=== PATIENT | male | born 1975 | race Caucasian/White ===

== ENCOUNTER 2023-08-26 10:14 | Inpatient (IN) ==
[2023-08-26] MEDS ORDERED: MAGNESIUM HYDROXIDE SUSP 30 ML UDC PO PRN (10:34)
[2023-08-26] MEDS ORDERED: diphenhydrAMINE 50 MG/ML VIAL IV PRN (10:34)
[2023-08-26] MEDS ORDERED: ACETAMINOPHEN 325 MG TAB PO PRN (10:34)
[2023-08-26] MEDS ORDERED: ONDANSETRON INJ 2 MG/ML 2 ML VIAL IV PRN (10:34)
[2023-08-26] MEDS ORDERED: Patient's ALLERGY Info needs ENTERED STA (10:44)
[2023-08-26 11:16] LABS: Basophils # (auto) 0.05 K/uL (0.00-0.20); Basophils % (auto) 0.8 %; Eosinophils # (auto) 0.19 K/uL (0.00-0.50); Eosinophils % (auto) 2.9 %; Hematocrit (blood only) 42.6 % (42.0-52.0); Hemoglobin 14.3 g/dl (14.0-18.0); Immature Granulocytes # (auto) 0.02 K/uL (0.01-0.20); Immature Granulocytes % (auto) 0.3 %; Lymphocytes # (auto) 1.86 K/uL (1.20-3.40); Lymphocytes % (auto) 28.7 %; Mean Corpuscular Hemoglobin 30.7 pg (25.0-34.0); Mean Corpuscular Hgb Conc 33.6 g/dL (32.0-36.0); Mean Corpuscular Volume 91.4 fL (80.0-100.0); Mean Platelet Volume 9.6 fL (9.4-12.4); Monocytes # (auto) 0.66 K/uL (0.11-0.59); Monocytes % (auto) 10.2 %; Neutrophils % (auto) 57.1 %; Platelet Count 155 K/uL (130-400); RDW Coefficient of Variation 11.9 % (11.5-14.5); RDW Standard Deviation 39.4 fL (36.4-46.3); Red Blood Count 4.66 M/uL (4.70-6.10); White Blood Count 6.48 K/ul (4.8-10.8)
[2023-08-26 11:34] LABS: Albumin Globulin Ratio 1.6 (0.9-2); Albumin Level 4.4 gm/dl (3.4-5.0); Bilirubin,Total 0.5 mg/dl (0.2-1.0); Calcium 8.9 mg/dl (8.6-10.3); Creatinine Clr Calc Pharmacy 124.5 ml/min; Est GFR (Non-African American) 105.3 ml/min; Globulin 2.7 gm/dl (2.5-4.0); Potassium 3.6 mmol/L (3.5-5.1); Total Protein 7.1 gm/dl (6.0-8.3)
--- NOTE | 2023-08-26 11:50 | Hospitalist Consultation ---
Date of Consultation August 26, 2023 Assessment & Plan (1) PTSD (post-traumatic stress disorder): on Zyprexa Effexor continue current meds (2) Ankle fracture: admitted for elective ankle fx surgery he denies chest pain or SOB, no h/o CAD EKG ordered if no ischemic changes , proceed with surgery, low risk, no additional testing History of Present Illness Reason for Consultation: preop eval Attending Physician: Romeo Hoskins MD History of Present Illness 48 yo inmate with h/o PTSD, anxiety, smoking, stopped 1 month ago, drug abuse, denies alcohol abuse. Mother is alive, father had HIV, . Admitted for elective left ankle surgery, fractured in June due to mechanical fall. Patient denies chest pain or SOB, denies any history of heart problems, denies h/o Asthma, COPD, no family h/o of sudden cardiac or CAD, denies problems with anesthesia before, no drugs allergies. Allergies Allergy/AdvReac Type Severity Reaction Status Date / Time No Known Allergies Allergy Unverified 08/26/23 11:47 Home Medications Medication Instructions Recorded Confirmed Type Effexor XR 300 mg PO PM 08/26/23 08/26/23 History Zyprexa 1 tab PO QPM 08/26/23 08/26/23 History buprenorphine 0.5 ml SC Q4WK 08/26/23 08/26/23 History Patient History Social History Smoking Status: Former smoker Hx Alcohol Use: No Hx Substance Use: No Preferred Language: Estonian Communication Ability: Effective Retail Director Required: No Beliefs That Will Affect Care: None Current Living Situation: Other Current Living Situation Comment: [facility] Other Information That Helps Us Care for You: No Feels Safe at Home: Yes Safety Concerns: Feels Safe At This Time Assistive Devices: Walker Review of Systems Review of Systems: All systems reviewed & are unremarkable except as noted in HPI & below Physical Exam Physical Exam: head atraumatic, normocephalic neck supple, no JVD chest CTA b/l Heart S1S2 regular, no murmurs, gallops, rubs abdomen soft, nt, nd , BS present extremities Results & Data Results & Data Vital Signs (Past 12 Hours) Vital Signs Temp Pulse Resp BP Pulse Ox O2 Del Method 08/26/23 10:53 36.7 C 65 16 116/80 94 Room Air PG Care Time/CCT Total # of Minutes Spent Total Time Spent with Patient: Total time spent is greater than 50% in coordination of care (as documented) at patient's floor/unit and/or counseling patient: Coding Level of Care Code 02487 IN/OBS CONSULT LVL 4,60M Diagnoses PTSD (post-traumatic stress disorder) F43.10 Ankle fracture S82.899A
--- NOTE | 2023-08-26 12:03 | History & Physical Report ---
Date of Service August 26, 2023 Assessment & Plan (1) Ankle fracture: Plan: Patient was admitted from our office to [facility] for evaluation and treatment of bimalleolar unstable right ankle fracture. He has a right ankle Cordova C lateral malleolus fracture and nonunited medial malleolus fracture He has multiple healing fracture blister type wound to the right lower extremity. He was placed in a posterior splint and advised to remain nonweig htbearing of the right lower extremity. We have an order in for a venous Doppler ultrasound of the right lower extremity to rule out DVT. Once that is completed we will place him in a more supportive splint with a U stirrup and posterior slab. He needs to ambulate with walker or crutches. Encouraged ice and elevation. We will give him a regular diet and plan for surgery early next week. If ultrasound for DVT is negative will place on Lovenox 30 mg SQ every 12 hours and will stop 12 to 24 hours prior to surgery. Will also get a CT scan of the right ankle. His fracture is approximately 5 weeks old at this time. He understands and agrees with the plan. Will get a hospitalist for medical management while an inpatient. AKI Leigh was notified of this admitting him and plans for surgery. He understands and agrees with the plan. All questions were answered today. Will continue to follow while inpatient. Admission and Anticipated Discharge Date Admission Date: August 26, 2023 History of Present Illness Chief Complaint: Right ankle fracture Primary Care Provider: AKI Leigh Alex Read is a 48 year old Male, [facility] inmate, who presents today for evaluation of right ankle fracture. Patients reports he had a fall while standing on 07/23/2023. He was unable to bear weight after the fall. He was taking to the ED where x-rays were obtained and placed in a splint. He was told at that time he would need surgery but has not been seen since. He has been relatively nonweightbearing except for to help balance while standing but is unable to bear full weight. He does note pain at rest and is taking ibuprofen and Tylenol for pain. Denies paraesthesia, numbness/tingling No history of blood clot/bleeding/embolism, diabetes, seizure, HTN, or CVD. No history of Staph or MRSA. No metal allergies. Allergies Allergy/AdvReac Type Severity Reaction Status Date / Time No Known Allergies Allergy Unverified 08/26/23 11:47 Home Medications Medication Instructions Recorded Confirmed Type Effexor XR 300 mg PO PM 08/26/23 08/26/23 History Zyprexa 1 tab PO QPM 08/26/23 08/26/23 History buprenorphine 0.5 ml SC Q4WK 08/26/23 08/26/23 History Past Med/Surg History Problem List (Updated 08/26/23 @ 12:03 by Sruthi Pritchett PA-C) Ankle fracture Medical History (Updated 08/26/23 @ 12:03 by Sruthi Pritchett PA-C) HCV (hepatitis C virus) Opioid use disorder Cannabis use disorder Cocaine use disorder Nicotine dependence Constipation Adjustment disorder with anxiety PTSD (post-traumatic stress disorder) Social History Smoking Status: Former smoker Hx Alcohol Use: No Hx Substance Use: No Preferred Language: Welsh Communication Ability: Effective Record Filing Clerk Required: No Beliefs That Will Affect Care: None Current Living Situation: Other Current Living Situation Comment: [facility] Other Information That Helps Us Care for You: No Feels Safe at Home: Yes Safety Concerns: Feels Safe At This Time Assistive Devices: Walker Review of Systems Review of Systems: All systems reviewed & are unremarkable except as noted in HPI & below Physical Exam Constitutional: WD/WN, vitals as above Eyes: PERRL, conjunctivae normal, anicteric sclerae ENMT: external ear and nose normal, oropharynx normal Neck: trachea midline, no thyromegaly Respiratory: normal respiratory effort, lungs clear to auscultation Cardiovascular: RRR, no murmur, no edema Chest (Breasts): Chest: normal inspection of chest Gastrointestinal (Abdomen): normal bowel sounds, soft, nontender, no hepatosplenomegaly Musculoskeletal: Focus on the right lower extremity: Trace DP and 1+ PT pulse Multiple dry, flat fracture blisters in the foot ankle area. 5/5 strength ankle and toe plantarflexion and dorsiflexion Ankle ROM: Plantarflexion 30 / Dorsiflexion 5 beyond neutral Minimal swelling Side to side laxity of ankle Medial and lateral malleoli are nontender Skin: Multiple dry, flat fracture blisters in the foot ankle area. Neurologic: patellar DTR's 2+ bilat, sensation intact and PERRL, EOMI, acco mmodation nl, no face palsy, no dysarthria Psychiatric: A+Ox3, euthymic affect Results & Data Results & Data Vital Signs (Past 12 Hours) Vital Signs Temp Pulse Resp BP Pulse Ox O2 Del Method 08/26/23 10:53 36.7 C 65 16 116/80 94 Room Air Laboratory Results 08/26/23 Range/Units 10:50 WBC 6.48 (4.8-10.8) K/ul RBC 4.66 L (4.70-6.10) M/uL Hgb 14.3 (14.0-18.0) g/dl Hct 42.6 (42.0-52.0) % MCV 91.4 (80.0-100.0) fL MCH 30.7 (25.0-34.0) pg MCHC 33.6 (32.0-36.0) g/dL RDW Std Deviation 39.4 (36.4-46.3) fL RDW Coeff of Sarthak 11.9 (11.5-14.5) % Plt Count 155 (130-400) K/uL MPV 9.6 (9.4-12.4) fL Immature Gran % (Auto) 0.3 % Neut % (Auto) 57.1 % Lymph % (Auto) 28.7 % Bland % (Auto) 10.2 % Eos % (Auto) 2.9 % Baso % (Auto) 0.8 % Neut # (Auto) 3.70 (1.40-6.50) K/uL Lymph # (Auto) 1.86 (1.20-3.40) K/uL Bland # (Auto) 0.66 H (0.11-0.59) K/uL Eos # (Auto) 0.19 (0.00-0.50) K/uL Baso # (Auto) 0.05 (0.00-0.20) K/uL Immature Gran # (Auto) 0.02 (0.01-0.20) K/uL Sodium 141 (136-145) mmol/L Potassium 3.6 (3.5-5.1) mmol/L Chloride 103 (98-107) mmol/L Carbon Dioxide 34 H (21-32) mmol/L Anion Gap 4 (3-11) BUN 18 (6-23) mg/dl Creatinine 0.82 (0.6-1.4) mg/dl Est Cr Clr Drug Dosing 124.5 ml/min Est GFR ( Amer) 122.0 ml/min Est GFR (Non-Af Amer) 105.3 ml/min BUN/Creatinine Ratio 22.0 H (10-20) Glucose 98 (70-99(Fasting)) mg/dl Calcium 8.9 (8.6-10.3) mg/dl Total Bilirubin 0.5 (0.2-1.0) mg/dl AST 18 (13-39) U/L ALT 25 (7-52) U/L Alkaline Phosphatase 83 (34-104) U/L Total Protein 7.1 (6.0-8.3) gm/dl Albumin 4.4 (3.4-5.0) gm/dl Globulin 2.7 (2.5-4.0) gm/dl Albumin/Globulin Ratio 1.6 (0.9-2) 25-OH Vitamin D Total Pending Diagnostic Findings I obtained and personally interpreted 3 views of the right ankle, stored in [facility] which shows a Cordova C lateral malleolus fracture and nonunited medial malleolus fracture. No findings posterior. CT of right ankle pending Code Status & VTE Plan VTE Prophylaxis Plan VTE Prophylaxis will be ordered: Yes
--- NOTE | 2023-08-26 12:49 | Ultrasound Report ---
RIGHT LOWER EXTREMITY VENOUS DOPPLER CLINICAL HISTORY: ankle fracture; swelling; immobility x 1 month COMPARISON STUDY: No previous studies for comparison. TECHNIQUE: Sonography of the deep venous system of the right lower extremity was performed. Compress ion and augmentation were evaluated. FINDINGS: The right common femoral, superficial femoral and popliteal veins were compressible. Augme ntation was normal. Flow was shown within the deep calf vessels. IMPRESSION: No evidence of deep venous thrombus within the right lower extremity. ACT 112: Negative or not required by law. Electronically signed by: Edgar Sarmiento M.D. 08/26/2023 12:48 PM
[2023-08-26] MEDS: IBUPROFEN 200 MG/10 ML UDC PO PRN (13:16)
[2023-08-26] MEDS: SODIUM CHLORIDE 0.9% 1,000 ML IV SCH (13:16)
--- NOTE | 2023-08-26 13:27 | CT Scan Report ---
RIGHT ANKLE CT CT DOSE: 532. mGy.cm HISTORY: Bilmalleolar ankle fracture - right TECHNIQUE: Multiaxial CT images of the right ankle were performed and reformatted in the sagittal and coronal plane without the use of contrast. A dose lowering technique was utilized adhering to the p rinciples of PENELOPE. COMPARISON: Right ankle radiograph 08/26/2023. FINDINGS: There is again noted a comminuted and mildly displaced fracture involving the distal fibula . This demonstrates mild posterior angulation and up to 6 mm of posterior and lateral displacement. T here is a slightly displaced oblique fracture within the medial malleolus which demonstrates up to 5 mm of distraction. No dislocation. Tiny fracture with associated callus formation at the posterior ma lleolus. Therefore, by definition this is consistent with a trimalleolar right ankle fracture. Diffus e subcutaneous edema within the ankle mild calcified formation without significant bony bridging at t he distal fibular fracture. This is consistent with partial healing. Avulsion of the periosteum at th e posterior malleolus is also noted. IMPRESSION: 1. Redemonstration of the mildly displaced trimalleolar right ankle fracture as described above. 2. No dislocation. 3. Mild calcified formation without significant bony bridging at the distal fibular fracture consiste nt with interval healing. 4. Diffuse soft tissue swelling within the right ankle. ACT 112: Negative or not required by law. Electronically signed by: New Masters M.D. 08/26/2023 1:25 PM
--- NOTE | 2023-08-26 15:56 | XRay Report ---
XR ankle LT min 3V routine CLINICAL HISTORY: Comparison review. Right ankle fracture. COMPARISON STUDY: Right ankle 08/26/2023. FINDINGS: No acute fracture or dislocation within the left ankle. The ankle mortise is intact. No sof t tissue swelling. No radiopaque foreign bodies. Cartilage spaces are maintained for age. IMPRESSION: No fracture or dislocation within the left ankle. ACT 112: Negative or not required by law. Electronically signed by: New Masters M.D. 08/26/2023 3:55 PM
[2023-08-26] MEDS: VENLAFAXINE HCL XR 150 MG CAPXR PO SCH (20:55)
[2023-08-26] MEDS: OLANZapine 20 MG TABLET PO SCH (20:55)
[2023-08-26] MEDS: ENOXAPARIN INJ 30 MG/0.3 ML SYR SQ SCH (20:55)
[2023-08-26] MEDS: DOCUSATE SODIUM 100 MG CAP PO SCH (20:55)
[2023-08-26] MEDS: IBUPROFEN 600 MG TAB PO PRN (21:15)
[2023-08-27] MEDS: PANTOprazole 40 MG TAB PO SCH (08:13)
--- NOTE | 2023-08-27 08:42 | Hospitalist Progress Note ---
Date of Service August 27, 2023 Assessment & Plan (1) Ankle fracture: Plan: Was at orthopedics office and admitted from such for evaluation and treatment of bimalleolar unstable right ankle fracture. Per orthopedics, Mr Read has a right ankle Cordova C lateral malleolus fracture and nonunited medial malleolus fracture with multiple healing fracture blister type wound to the right lower extremity. * Placed in a posterior splint and advised to remain nonweightbearing of the right lower extremity. * Venous Doppler ordered to r/o DVT -- NEGATIVE * CT scan w/ posterior malleolar fracture which is structurally insignificant, ununited medial malleolus fracture and comminuted lateral malleolus fracture No fracture in left ankle on xray imaging Per ortho note, to be placed in more supportive splint with U stirrup and posterior slap and ambulation with walker/crutches planned with ice/elevation and planning for surgery early this upcoming week Vit D level checked, LOW 15.9- replacement as below and would continue at dc Lovenox SQ to be ordered BID and to be held 12-24 hours prior to surgery (surgery planned at present time for 08/[address] Hoskins EKG w/ NSR, 61bpm, no evidence for ischemic changes or need for additional testing. No hx CAD -will order CXR for pre-op as does not appear to have baseline prior for comparison. Increased bowel regimen - continue colace BID but added miralax TID as reports has been several days since last BM. Does have +BS throughout and passing gas. Should monitor. Ambulation as able per ortho instructions once seen/stirrup in place IVF ordered continuous, ?does not appear dehydrated -- messaged primary to see if wanting continuous or was to start once NPO Hospitalist service can follow along, messaged primary service (2) PTSD (post-traumatic stress disorder): Plan: on Zyprexa which has been continued 20mg HS Effexor 300mg daily QAM ordered --> changed to HS as takes at night Mood stable during exam (3) Vitamin D deficiency: Plan: Vitamin D level checked due to fracture, LOW 15.9 Supplementation started D3 25mcg daily and would continue at discharge Plan continued inpatient stay, surgery planned this upcoming week Hospitalist service will follow along. Please call with any questions/concerns. Admission and Anticipated Discharge Date Admission Date: August 26, 2023 Supervising Physician Co-Signing Physician Notes The patient was not seen by me. The chart was reviewed. Case discussed with SARA Cook. Agree with assessment and plan Subjective Evaluated this morning, laying in bed, guards at bedside. Reports pain controlled at this time, sensation intact. Reviewed negative doppler for DVT, CT results and negative fractures for his left ankle. Passing gas but no BM for several days, will increase bowel regimen. Ortho not yet in to see patient but to change his cast to different split per prior note. Discussed likely no need for continuing to monitor if stable by hospitalist group until after surgery but will discuss w/ primary service as IVF also continuous and inquiring if needing to be now vs when NPO Tuesday night? He also notes he takes his effexor at night, adjusted. Mood stable. Pleasant with exam No fever/chills, chest pain shortness of breath, abdominal pain/nausea at this time. Questions/concerns addressed. Physical Exam Physical Exam: 48yo male sitting up in bed, 2 guards in room, NAD Head atraumatic, normocephalic, mmm, trachea midline Resp: even/unlabored, no w/c/r, on room air CV: RRR, no significant m/r/g, no pitting edema on the left, cast/splint on RLE GI: +BS, slight distension, nontender, no guarding/rebound MSK/Neuro: splint/emilia wrap to RLE, toes mobile, sensation intact, cap refill wnl LLE without significant edema, no calf tenderness Psych: AOx3, cooperative with exam Results & Data Results & Data Vital Signs (Past 12 Hours) Vital Signs Temp Pulse Resp BP Pulse Ox O2 Del Method 08/27/23 06:59 36.3 C L 67 16 117/71 96 Room Air Laboratory Results 08/26/23 08/26/23 Range/Units 16:20 10:50 WBC 6.48 (4.8-10.8) K/ul RBC 4.66 L (4.70-6.10) M/uL Hgb 14.3 (14.0-18.0) g/dl Hct 42.6 (42.0-52.0) % MCV 91.4 (80.0-100.0) fL MCH 30.7 (25.0-34.0) pg MCHC 33.6 (32.0-36.0) g/dL RDW Std Deviation 39.4 (36.4-46.3) fL RDW Coeff of Sarthak 11.9 (11.5-14.5) % Plt Count 155 (130-400) K/uL MPV 9.6 (9.4-12.4) fL Immature Gran % (Auto) 0.3 % Neut % (Auto) 57.1 % Lymph % (Auto) 28.7 % Nash % (Auto) 10.2 % Eos % (Auto) 2.9 % Baso % (Auto) 0.8 % Neut # (Auto) 3.70 (1.40-6.50) K/uL Lymph # (Auto) 1.86 (1.20-3.40) K/uL Nash # (Auto) 0.66 H (0.11-0.59) K/uL Eos # (Auto) 0.19 (0.00-0.50) K/uL Baso # (Auto) 0.05 (0.00-0.20) K/uL Immature Gran # (Auto) 0.02 (0.01-0.20) K/uL Sodium 141 (136-145) mmol/L Potassium 3.6 (3.5-5.1) mmol/L Chloride 103 (98-107) mmol/L Carbon Dioxide 34 H (21-32) mmol/L Anion Gap 4 (3-11) BUN 18 (6-23) mg/dl Creatinine 0.82 (0.6-1.4) mg/dl Est Cr Clr Drug Dosing 124.5 ml/min Est GFR ( Amer) 122.0 ml/min Est GFR (Non-Af Amer) 105.3 ml/min BUN/Creatinine Ratio 22.0 H (10-20) Glucose 98 (70-99(Fasting)) mg/dl Calcium 8.9 (8.6-10.3) mg/dl Total Bilirubin 0.5 (0.2-1.0) mg/dl AST 18 (13-39) U/L ALT 25 (7-52) U/L Alkaline Phosphatase 83 (34-104) U/L Total Protein 7.1 (6.0-8.3) gm/dl Albumin 4.4 (3.4-5.0) gm/dl Globulin 2.7 (2.5-4.0) gm/dl Albumin/Globulin Ratio 1.6 (0.9-2) 25-OH Vitamin D Total 15.9 L (30-100) ng/ml Nasal Screen MRSA (PCR) Negative (Negative) Diagnostic Findings Lower Extremity CT 08/26/23 10:[address] DOSE: 532. mGy.cm HISTORY: Bilmalleolar ankle fracture - right TECHNIQUE: Multiaxial CT images of the right ankle were performed and reformatted in the sagittal and coronal plane without the use of contrast. A dose lowering technique was utilized adhering to the principles of ALARA. COMPARISON: Right ankle radiograph 08/26/2023. FINDINGS: There is again noted a comminuted and mildly displaced fracture involving the distal fibula. This demonstrates mild posterior angulation and up to 6 mm of posterior and lateral displacement. There is a slightly displaced oblique fracture within the medial malleolus which demonstrates up to 5 mm of distraction. No dislocation. Tiny fracture with associated callus formation at the posterior malleolus. Therefore, by definition this is consistent with a trimalleolar right ankle fracture. Diffuse subcutaneous edema within the ankle mild calcified formation without significant bony bridging at the distal fibular fracture. This is consistent with partial healing. Avulsion of the periosteum at the posterior malleolus is also noted. IMPRESSION: 1. Redemonstration of the mildly displaced trimalleolar right ankle fracture as described above. 2. No dislocation. 3. Mild calcified formation without significant bony bridging at the distal fibular fracture consistent with interval healing. 4. Diffuse soft tissue swelling within the right ankle. ACT 112: Negative or not required by law. Electronically signed by: New Masters M.D. 08/26/2023 1:25 PM Venous Doppler Study 08/26/23 10:40 RIGHT LOWER EXTREMITY VENOUS DOPPLER CLINICAL HISTORY: ankle fracture; swelling; immobility x 1 month COMPARISON STUDY: No previous studies for comparison. TECHNIQUE: Sonography of the deep venous system of the right lower extremity was performed. Compression and augmentation were evaluated. FINDINGS: The right common femoral, superficial femoral and popliteal veins were compressible. Augmentation was normal. Flow was shown within the deep calf vessels. IMPRESSION: No evidence of deep venous thrombus within the right lower extremity. ACT 112: Negative or not required by law. Electronically signed by: Edgar Sarmiento M.D. 08/26/2023 12:48 PM Ankle X-Ray 08/26/23 14:09 XR ankle LT min 3V routine CLINICAL HISTORY: Comparison review. Right ankle fracture. COMPARISON STUDY: Right ankle 08/26/2023. FINDINGS: No acute fracture or dislocation within the left ankle. The ankle mortise is intact. No soft tissue swelling. No radiopaque foreign bodies. Cartilage spaces are maintained for age. IMPRESSION: No fracture or dislocation within the left ankle. ACT 112: Negative or not required by law. Electronically signed by: New Masters M.D. 08/26/2023 3:55 PM PG Care Time/CCT Total # of Minutes Spent Total Time Spent with Patient: Total time spent is greater than 50% in coordination of care (as documented) at patient's floor/unit and/or counseling patient: Coding Level of Care Code 11658 SUB INP/OBS CARE 3/50MIN Diagnoses Ankle fracture S82.899A PTSD (post-traumatic stress disorder) F43.10 Vitamin D deficiency E55.9
[2023-08-27] MEDS: POLYETHYLENE (MIRALAX) 17 GM PACK PO SCH (09:58)
[2023-08-27] MEDS: CHOLECALCIFEROL 25 MCG (1000 UNITS) TAB PO SCH (09:58)
--- NOTE | 2023-08-27 10:42 | XRay Report ---
XR chest 1V portable HISTORY: pre-op COMPARISON: None. FINDINGS: No pneumothorax. No pleural effusions. There is mild elevation the right hemidiaphragm. A f ew bibasilar linear densities favor subsegmental atelectasis or scarring. Otherwise, the lungs are cl ear. The heart is normal in size. No evidence for pulmonary edema. IMPRESSION: 1. No acute process within the chest. 2. Mild elevation of the right hemidiaphragm with a few bibasilar linear densities suggesting subsegm ental atelectasis. ACT 112: Negative or not required by law. Electronically signed by: New Masters M.D. 08/27/2023 10:41 AM
--- NOTE | 2023-08-27 11:35 | Orthopedic Progress Note ---
Date of Service August 27, 2023 Assessment & Plan (1) Ankle fracture: Plan: He has a subacute (5 weeks) bimalleolar right ankle fracture. Dr. Hoskins is planning for ORIF this week on 08/31/23. He should remain nonweightbearing on the right leg until then. Admission and Anticipated Discharge Date Admission Date: August 26, 2023 Subjective Patient is resting comfortably in bed, and accompanied by 2 snf guards. He denies significant pain in his right ankle. Physical Exam Physical Exam: Examination right ankle reveals a lower leg posterior and U-splint in place. Intact toe dorsiflexion and plantarflexion. Sensation is intact to light touch. Compartments are soft and compressible. No pain with passive stretch. Results & Data Vital Signs (Past 12 Hours) Vital Signs Temp Pulse Resp BP Pulse Ox O2 Del Method 08/27/23 06:59 36.3 C L 67 16 117/71 96 Room Air Diagnostic Findings Right lower extremity ultrasound was negative for DVT. (1) Ankle fracture Encounter type: initial encounter Fracture type: closed Laterality: right Qualified Code(s): S82.891A - Other fracture of right lower leg, initial encounter for closed fracture
[2023-08-27] MEDS: VENLAFAXINE HCL XR 150 MG CAPXR PO SCH (20:15)
--- NOTE | 2023-08-28 07:41 | Hospitalist Progress Note ---
Date of Service August 28, 2023 Assessment & Plan (1) Ankle fracture: Plan: Was at orthopedics office and admitted from such for evaluation and treatment of bimalleolar unstable right ankle fracture. Per orthopedics, Mr Read has a right ankle Cordova C lateral malleolus fracture and nonunited medial malleolus fracture with multiple healing fracture blister type wound to the right lower extremity. * Placed in a posterior splint and advised to remain nonweightbearing of the right lower extremity. * Venous Doppler ordered to r/o DVT -- NEGATIVE * CT scan w/ posterior malleolar fracture which is structurally insignificant, ununited medial malleolus fracture and comminuted lateral malleolus fracture No fracture in left ankle on xray imaging Per ortho note, to be placed in more supportive splint with U stirrup and posterior slap and ambulation with walker/crutches planned with ice/elevation and planning for surgery early this upcoming week Vit D level checked, LOW 15.9- replacement as below and would continue at dc Lovenox SQ to be ordered BID and to be held 12-24 hours prior to surgery (surgery planned at present time for 08/[address] Hoskins EKG w/ NSR, 61bpm, no evidence for ischemic changes or need for additional testing. No hx CAD -will order CXR for pre-op as does not appear to have baseline prior for comparison. Increased bowel regimen - continue colace BID but added miralax TID as reports has been several days since last BM. Does have +BS throughout and passing gas. Should monitor. Ambulation as able per ortho instructions once seen/stirrup in place IVF ordered continuous, ?does not appear dehydrated -- messaged primary to see if wanting continuous or was to start once NPO Hospitalist service can follow along, messaged primary service 08/27 While not needing to follow per primary while waiting for surgery and IVF discontinued per discussion w/ primary service, overnight resident team notified of patient reporting blood in stool. Prior had added bowel regimen for constipation as reported had been several days. ?hemorrhoidal bleeding from constipation. Will add labs today for completeness, fecal occult ordered. Cautious use of NSAIDs pending labs however vitals stable at present time, BP 117/80 and SpO2 95%. --> Labs w/ normal WBC. Hgb 14.3--> 13.1 HOWEVER had been on IVF by primary service since admission/discontinued yesterday as not planning for surgery until this upcoming week and suspect dilutional. BUN/Cr stable 14/0.83 as well. Suspect does NOT have GI bleeding but should monitor. Remains on protonix once daily, monitor fecal occult or need to increase PPI to BID. Cautious use NSAIDs recommended to primary service while awaiting stool study as has been getting ibuprofen for pain. Remains on Lovenox SQ for DVT prophylaxis. CXR w/ subsegmental atelectasis, on room air/no fever. Incentive spirometer encouraged Continue bowel regimen on pain medications at this time to prevent constipation Will monitor repeat h/h this afternoon to ensure remaining stable but DO NOT suspect acute GIB at this time and likely more hemorrhoidal in nature Planning for surgery on Tuesday Please bairon with any questions/concerns (2) PTSD (post-traumatic stress disorder): Plan: on Zyprexa which has been continued 20mg HS Effexor 300mg changed to HS Mood stable during exam (3) Vitamin D deficiency: Plan: Vitamin D level checked due to fracture, LOW 15.9 Supplementation started D3 25mcg daily and would continue at discharge (4) Bright red blood per rectum: Plan: reported as above x 1 month. had been taking ibuprofen for pain at halfway. hx hemorrhoids. is on PPI once daily for GI proph, increased to BID repeat h/h for this afternoon to ensure remaining stable OFF IVF DENIED abdominal pain Ibuprofen DISCONTINUED Lovenox SQ continued for not given stable labs/hgb/renal function and absence of abdominal pain but may need to be held pending fecal occult testing. can consider consult w/ GI if ongoing issues as well Monitor Plan continued inpatient stay, surgery planned this upcoming week on Tuesday Hospitalist service will follow along. Please call with any questions/concerns. Admission and Anticipated Discharge Date Admission Date: August 26, 2023 Supervising Physician Co-Signing Physician Notes The patient was not seen by me. The chart was reviewed. Case discussed with SARA Cook. Agree with assessment and plan Subjective Evaluated this morning, doing well. Pain controlled with ordered medications and reports to be getting tylenol shortly. Had bowel movement with regimen as added day prior but reported bright red blood in the stool/bowel with last bowel movement but reports this has been ongoing for a month. No lightheadedness/CP/SOB at this time, denies any abdominal pain or nausea/vomiting. Discussed AVOIDING NSAIDs -- had been taking ibuprofen at the halfway. Is on Lovenox for DVT prophylaxis at this time. Renal function remains stable as well. Hgb stable and vitals stable and discussed given stability and absence of abdominal pain at this time do not suspect acute issue but will monitor. Planning for surgery on Tuesday. Physical Exam Physical Exam: 48yo male sitting up in bed, 2 guards in room, NAD Head atraumatic, normocephalic, mmm, trachea midline Resp: even/unlabored, faint bibasilar crackles, no wheezing/rales, on room air CV: RRR, no significant m/r/g, no pitting edema on the left, cast/splint on RLE GI: +BS, less distension since bowel movements, no guarding/rigidity MSK/Neuro: splint/emilia wrap to RLE, toes mobile, sensation intact, cap refill wnl LLE without significant edema, no calf tenderness Psych: AOx3, cooperative with exam Results & Data Results & Data Vital Signs (Past 12 Hours) Vital Signs Temp Pulse Resp BP Pulse Ox O2 Del Method 08/28/23 07:21 36.4 C L 69 16 117/80 95 Room Air 08/27/23 21:01 36.5 C 62 18 119/79 96 Room Air Laboratory Results 08/28/23 Range/Units 07:43 WBC 5.68 (4.8-10.8) K/ul RBC 4.30 L (4.70-6.10) M/uL Hgb 13.1 L (14.0-18.0) g/dl Hct 38.9 L (42.0-52.0) % MCV 90.5 (80.0-100.0) fL MCH 30.5 (25.0-34.0) pg MCHC 33.7 (32.0-36.0) g/dL RDW Std Deviation 38.8 (36.4-46.3) fL RDW Coeff of Sarthak 11.9 (11.5-14.5) % Plt Count 146 (130-400) K/uL MPV 9.6 (9.4-12.4) fL Sodium 143 (136-145) mmol/L Potassium 3.9 (3.5-5.1) mmol/L Chloride 106 (98-107) mmol/L Carbon Dioxide 34 H (21-32) mmol/L Anion Gap 3 (3-11) BUN 14 (6-23) mg/dl Creatinine 0.83 (0.6-1.4) mg/dl Est Cr Clr Drug Dosing 123.0 ml/min Est GFR ( Amer) 121.4 ml/min Est GFR (Non-Af Amer) 104.8 ml/min BUN/Creatinine Ratio 16.9 (10-20) Glucose 88 (70-99(Fasting)) mg/dl Calcium 8.7 (8.6-10.3) mg/dl Magnesium 1.9 (1.7-2.4) mg/dl Diagnostic Findings Chest X-Ray 08/27/23 08:39 XR chest 1V portable HISTORY: pre-op COMPARISON: None. FINDINGS: No pneumothorax. No pleural effusions. There is mild elevation the right hemidiaphragm. A few bibasilar linear densities favor subsegmental atelectasis or scarring. Otherwise, the lungs are clear. The heart is normal in size. No evidence for pulmonary edema. IMPRESSION: 1. No acute process within the chest. 2. Mild elevation of the right hemidiaphragm with a few bibasilar linear densities suggesting subsegmental atelectasis. ACT 112: Negative or not required by law. Electronically signed by: New Masters M.D. 08/27/2023 10:41 AM PG Care Time/CCT Total # of Minutes Spent Total Time Spent with Patient: Total time spent is greater than 50% in coordination of care (as documented) at patient's floor/unit and/or counseling patient: Coding Level of Care Code 20654 SUB INP/OBS CARE 3/50MIN Diagnoses Closed fracture of right ankle, initial encounter S82.891A Encounter type: initial encounter Fracture type: closed Laterality: right PTSD (post-traumatic stress disorder) F43.10 Vitamin D deficiency E55.9 Bright red blood per rectum K62.5 (1) Ankle fracture Encounter type: initial encounter Fracture type: closed Laterality: right Qualified Code(s): S82.891A - Other fracture of right lower leg, initial encounter for closed fracture
[2023-08-28 08:17] LABS: Hematocrit (blood only) 38.9 % (42.0-52.0); Hemoglobin 13.1 g/dl (14.0-18.0); Mean Corpuscular Hemoglobin 30.5 pg (25.0-34.0); Mean Corpuscular Hgb Conc 33.7 g/dL (32.0-36.0); Mean Corpuscular Volume 90.5 fL (80.0-100.0); Mean Platelet Volume 9.6 fL (9.4-12.4); Platelet Count 146 K/uL (130-400); RDW Coefficient of Variation 11.9 % (11.5-14.5); RDW Standard Deviation 38.8 fL (36.4-46.3); White Blood Count 5.68 K/ul (4.8-10.8)
[2023-08-28 08:32] LABS: BUN Creatinine Ratio 16.9 (10-20); Calcium 8.7 mg/dl (8.6-10.3); Est GFR (African American) 121.4 ml/min; Est GFR (Non-African American) 104.8 ml/min; Magnesium 1.9 mg/dl (1.7-2.4); Potassium 3.9 mmol/L (3.5-5.1)
[2023-08-28] MEDS: oxyCODONE/ACETAMINOPHEN 5mg/325mg TAB PO PRN (10:29)
--- NOTE | 2023-08-28 12:03 | Orthopedic Progress Note ---
Date of Service August 28, 2023 Assessment & Plan (1) Ankle fracture: Plan: The hospital service will monitor and intervene regarding any GI bleeding issues as necessary. Right now hemoglobin is stable and he is hemodynamically stable. This is likely secondary to hemorrhoids and constipation rather than GI bleeding. NSAIDs will be held. Discussed with the patient the nature of the operation. We talked about risk benefits rehab recovery. This will be fairly extensive surgery and there will be pain involved. Arthritis and stiffness are significant risks. We will have to clean out the fracture sites and realign. Will also have to work on the syndesmosis. Autograft or allograft may be necessary and I reviewed with him the risks and benefits. He signed an informed consent. He will continue with his DVT prophylaxis. I would like for him to be out of bed in a chair if possible however the halfway guards indicate that that is not possible because of the shuttling issue. Admission and Anticipated Discharge Date Admission Date: August 26, 2023 Subjective Pain well-controlled. Did note bright red blood per rectum after having a bowel movement. No active bleeding. No black tarry stool. He reports this has been going on for a month. He has been constipated because of his opioid addiction medication. He has not had any abdominal pain or prior history of GI bleeding. He has not had a colonoscopy. I have spoken with Marina Adams about this and she is addressing. Physical Exam Physical Exam: Foot warm intact sensation can wiggle toes. Splint intact. Leg elevated. Results & Data Vital Signs (Past 12 Hours) Vital Signs Temp Pulse Resp BP Pulse Ox O2 Del Method 08/28/23 07:21 36.4 C L 69 16 117/80 95 Room Air Laboratory Results 08/28/23 Range/Units 07:43 WBC 5.68 (4.8-10.8) K/ul RBC 4.30 L (4.70-6.10) M/uL Hgb 13.1 L (14.0-18.0) g/dl Hct 38.9 L (42.0-52.0) % MCV 90.5 (80.0-100.0) fL MCH 30.5 (25.0-34.0) pg MCHC 33.7 (32.0-36.0) g/dL RDW Std Deviation 38.8 (36.4-46.3) fL RDW Coeff of Sarthak 11.9 (11.5-14.5) % Plt Count 146 (130-400) K/uL MPV 9.6 (9.4-12.4) fL Sodium 143 (136-145) mmol/L Potassium 3.9 (3.5-5.1) mmol/L Chloride 106 (98-107) mmol/L Carbon Dioxide 34 H (21-32) mmol/L Anion Gap 3 (3-11) BUN 14 (6-23) mg/dl Creatinine 0.83 (0.6-1.4) mg/dl Est Cr Clr Drug Dosing 123.0 ml/min Est GFR ( Amer) 121.4 ml/min Est GFR (Non-Af Amer) 104.8 ml/min BUN/Creatinine Ratio 16.9 (10-20) Glucose 88 (70-99(Fasting)) mg/dl Calcium 8.7 (8.6-10.3) mg/dl Magnesium 1.9 (1.7-2.4) mg/dl (1) Ankle fracture Encounter type: initial encounter Fracture type: closed Laterality: right Qualified Code(s): S82.891A - Other fracture of right lower leg, initial encounter for closed fracture
[2023-08-28 16:14] LABS: Hematocrit (blood only) 37.7 % (42.0-52.0); Hemoglobin 13.1 g/dl (14.0-18.0)
--- NOTE | 2023-08-28 18:41 | Electrocardiogram Report ---
Test Reason : Blood Pressure : / mmHG Vent. Rate : 061 BPM Atrial Rate : 061 BPM P-R Int : 184 ms QRS Dur : 086 ms QT Int : 448 ms P-R-T Axes : 024 000 011 degrees QTc Int : 450 ms Normal sinus rhythm Normal ECG No previous ECGs available Confirmed by Torsten Snow [id number]) on 08/28/2023 6:41:50 PM Referred By: Romeo Hoskins Confirmed By:Torsten Snow
[2023-08-28] MEDS: PANTOprazole 40 MG TAB PO SCH (20:57)
[2023-08-29 07:08] LABS: Hematocrit (blood only) 38.4 % (42.0-52.0); Hemoglobin 13.2 g/dl (14.0-18.0); Mean Corpuscular Hgb Conc 34.4 g/dL (32.0-36.0); Mean Corpuscular Volume 90.1 fL (80.0-100.0); Mean Platelet Volume 9.9 fL (9.4-12.4); Platelet Count 150 K/uL (130-400); RDW Coefficient of Variation 11.9 % (11.5-14.5); RDW Standard Deviation 38.5 fL (36.4-46.3); Red Blood Count 4.26 M/uL (4.70-6.10); White Blood Count 5.41 K/ul (4.8-10.8)
[2023-08-29 07:41] LABS: Albumin Globulin Ratio 1.7 (0.9-2); Albumin Level 3.9 gm/dl (3.4-5.0); BUN Creatinine Ratio 11.8 (10-20); Bilirubin,Total 0.4 mg/dl (0.2-1.0); Calcium 8.5 mg/dl (8.6-10.3); Creatinine Clr Calc Pharmacy 120.1 ml/min; Est GFR (African American) 120.3 ml/min; Est GFR (Non-African American) 103.8 ml/min; Globulin 2.3 gm/dl (2.5-4.0); Magnesium 1.9 mg/dl (1.7-2.4); Potassium 3.6 mmol/L (3.5-5.1); Total Protein 6.2 gm/dl (6.0-8.3)
--- NOTE | 2023-08-29 08:17 | Hospitalist Progress Note ---
Date of Service August 29, 2023 Assessment & Plan (1) Ankle fracture: Plan: Was at orthopedics office and admitted from such for evaluation and treatment of bimalleolar unstable right ankle fracture. Per orthopedics, Mr Read has a right ankle [place] C lateral malleolus fracture and nonunited medial malleolus fracture with multiple healing fracture blister type wound to the right lower extremity. * Placed in a posterior splint and advised to remain nonweightbearing of the right lower extremity. * Venous Doppler ordered to r/o DVT -- NEGATIVE * CT scan w/ posterior malleolar fracture which is structurally insignificant, ununited medial malleolus fracture and comminuted lateral malleolus fracture No fracture in left ankle on xray imaging Per ortho note, to be placed in more supportive splint with U stirrup and posterior slap and ambulation with walker/crutches planned with ice/elevation and planning for surgery early this upcoming week Vit D level checked, LOW 15.9- replacement as below and would continue at dc Lovenox SQ to be ordered BID and to be held 12-24 hours prior to surgery (surgery planned at present time for 08/[address] Hoskins EKG w/ NSR, 61bpm, no evidence for ischemic changes or need for additional testing. No hx CAD -will order CXR for pre-op as does not appear to have baseline prior for comparison. Increased bowel regimen - continue colace BID but added miralax TID as reports has been several days since last BM. Does have +BS throughout and passing gas. Should monitor. Ambulation as able per ortho instructions once seen/stirrup in place IVF ordered continuous, ?does not appear dehydrated -- messaged primary to see if wanting continuous or was to start once NPO Hospitalist service can follow along, messaged primary service 08/27 While not needing to follow per primary while waiting for surgery and IVF discontinued per discussion w/ primary service, overnight resident team notified of patient reporting blood in stool. Prior had added bowel regimen for constipation as reported had been several days. ?hemorrhoidal bleeding from constipation. Will add labs today for completeness, fecal occult ordered. Cautious use of NSAIDs pending labs however vitals stable at present time, BP 117/80 and SpO2 95%. --> Labs w/ normal WBC. Hgb 14.3--> 13.1 HOWEVER had been on IVF by primary service since admission/discontinued yesterday as not planning for surgery until this upcoming week and suspect dilutional. BUN/Cr stable 14/0.83 as well. Suspect does NOT have GI bleeding but should monitor, does have hx hemorrhoids and has been constipated on admission. Remains on protonix once daily, monitor fecal occult but empirically increased PPI to BID for now. Cautious use NSAIDs recommended to primary service while awaiting stool study as has been getting ibuprofen for pain. Remains on Lovenox SQ for DVT prophylaxis. H/h on repeat last evening 13.1/37.7 CBC this morning again w/ stable h/h 132.2/38.4 with stable BUN/Cr 10/0.85. BP is a little on softer side today but not on any BP medications and would monitor. fecal occult ordered w/ next BM, but would avoid NSAIDs for now. Can remain on Lovenox SQ given risk for DVT/dereased ambulation while inpatinet as not able to get up out of bed/have leg elevated per ortho discussion w/ guards the day prior CXR w/ subsegmental atelectasis, no fever/sputum production. 94% on RA, incentive spirometer encouraged Continue bowel regimen on pain medications at this time to prevent constipation Planning for surgery on Tuesday Please bairon with any questions/concerns (2) PTSD (post-traumatic stress disorder): Plan: on Zyprexa which has been continued 20mg HS Effexor 300mg changed to HS Mood stable during exam (3) Vitamin D deficiency: Plan: Vitamin D level checked due to fracture, LOW 15.9 Supplementation started D3 25mcg daily and would continue at discharge (4) Bright red blood per rectum: Plan: reported as above x 1 month. had been taking ibuprofen for pain at custodial. hx hemorrhoids. is on PPI once daily for GI proph, increased to BID repeat h/h for this afternoon to ensure remaining stable OFF IVF DENIED abdominal pain Ibuprofen DISCONTINUED Lovenox SQ continued for not given stable labs/hgb/renal function and absence of abdominal pain but may need to be held pending fecal occult testing. can consider consult w/ GI if ongoing issues as well Monitor Plan continued inpatient stay, surgery planned this upcoming week on Tuesday Hospitalist service will follow along. Please call with any questions/concerns. Admission and Anticipated Discharge Date Admission Date: August 26, 2023 Results & Data Results & Data Vital Signs (Past 12 Hours) Vital Signs Temp Pulse Resp BP Pulse Ox O2 Del Method 08/29/23 07:16 36.4 C L 71 16 97/66 L 94 Room Air 08/28/23 21:05 36.5 C 77 18 119/83 96 Room Air PG Care Time/CCT Total # of Minutes Spent Total Time Spent with Patient: Total time spent is greater than 50% in coordination of care (as documented) at patient's floor/unit and/or counseling patient: Coding Diagnoses Closed fracture of right ankle, initial encounter S82.891A Encounter type: initial encounter Fracture type: closed Laterality: right PTSD (post-traumatic stress disorder) F43.10 Vitamin D deficiency E55.9 Bright red blood per rectum K62.5 (1) Ankle fracture Encounter type: initial encounter Fracture type: closed Laterality: right Qualified Code(s): S82.891A - Other fracture of right lower leg, initial encounter for closed fracture
--- NOTE | 2023-08-29 10:42 | Orthopedic Progress Note ---
Date of Service August 29, 2023 Assessment & Plan (1) Ankle fracture: Plan: Plan is for surgical intervention with Right ankle ORIF with syndesmosis stabilization this Tuesday morning (08/31/23). The hospital service will monitor and intervene regarding any GI bleeding issues as necessary. Right now hemoglobin is stable and he is hemodynamically stable. This is likely secondary to hemorrhoids and constipation rather than GI bleeding. NSAIDs will be held. Discussed with the patient the nature of the operation. We talked about risk benefits rehab recovery. This will be fairly extensive surgery and there will be pain involved. Arthritis and stiffness are significant risks. We will have to clean out the fracture sites and realign. Will also have to work on the syndesmosis. Autograft or allograft may be necessary and I reviewed with him the risks and benefits. He signed an informed consent. He will continue with his DVT prophylaxis with his last dose of Lovenox being this evening. I would like for him to be out of bed in a chair if possible however the residential guards indicate that that is not possible because of the shuttling issue. Admission and Anticipated Discharge Date Admission Date: August 26, 2023 Subjective This 48-year-old male inmate from [facility] is seen this morning for evaluation of a right ankle trimalleolar fracture that he sustained back in late June. Patient was initially seen in the emergency department has been placed and was discharged back to the institution. He presented again a few days ago and it was determined that he needed surgical intervention due to increased angulation and instability of his ankle. Patient states he is fairly comfortable. He states that his splint does not bother him. He denies any numbness or tingling in his right lower extremity. He states that he discussed surgical intervention with Dr. Hoskins and signed the consent form yesterday. Currently he denies any chest pain, shortness of breath, fever, chills, sweats, nausea, vomiting, diarrhea or difficulty voiding. Patient states that he is also being evaluated for a GI bleed due to symptoms of having black tarry stools and bloody BMs. Currently he is hemodynamically stable with a hemoglobin 13.2 and hematocrit of 39.4. Review of Systems Review of Systems: All systems reviewed & are unremarkable except as noted in Subjective Physical Exam Physical Exam: Right lower extremity: Splint is clean dry and intact and left in place. Patient is able perform active straight leg raise test. He is able to do move his digits and intact light sensation to touch over the pads of all digits. Knee range of motion is full. Patient is neurovascularly intact. Results & Data Vital Signs (Past 12 Hours) Vital Signs Temp Pulse Resp BP Pulse Ox O2 Del Method 08/29/23 07:16 36.4 C L 71 16 97/66 L 94 Room Air Diagnostic Findings Laboratory Results WBC 5.41 K/ul (4.8-10.8) 08/29/23 06:31 RBC 4.26 M/uL (4.70-6.10) L 08/29/23 06:31 Hgb 13.2 g/dl (14.0-18.0) L 08/29/23 06:31 Hct 38.4 % (42.0-52.0) L 08/29/23 06:31 MCV 90.1 fL (80.0-100.0) 08/29/23 06:31 MCH 31.0 pg (25.0-34.0) 08/29/23 06:31 MCHC 34.4 g/dL (32.0-36.0) 08/29/23 06:31 RDW Std Deviation 38.5 fL (36.4-46.3) 08/29/23 06:31 RDW Coeff of Sarthak 11.9 % (11.5-14.5) 08/29/23 06:31 Plt Count 150 K/uL (130-400) 08/29/23 06:31 MPV 9.9 fL (9.4-12.4) 08/29/23 06:31 Immature Gran % (Auto) 0.3 % 08/26/23 10:50 Neut % (Auto) 57.1 % 08/26/23 10:50 Lymph % (Auto) 28.7 % 08/26/23 10:50 [place] % (Auto) 10.2 % 08/26/23 10:50 Eos % (Auto) 2.9 % 08/26/23 10:50 Baso % (Auto) 0.8 % 08/26/23 10:50 Neut # (Auto) 3.70 K/uL (1.40-6.50) 08/26/23 10:50 Lymph # (Auto) 1.86 K/uL (1.20-3.40) 08/26/23 10:50 [place] # (Auto) 0.66 K/uL (0.11-0.59) H 08/26/23 10:50 Eos # (Auto) 0.19 K/uL (0.00-0.50) 08/26/23 10:50 Baso # (Auto) 0.05 K/uL (0.00-0.20) 08/26/23 10:50 Immature Gran # (Auto) 0.02 K/uL (0.01-0.20) 08/26/23 10:50 Sodium 141 mmol/L (136-145) 08/29/23 06:31 Potassium 3.6 mmol/L (3.5-5.1) 08/29/23 06:31 Chloride 104 mmol/L (98-107) 08/29/23 06:31 Carbon Dioxide 32 mmol/L (21-32) 08/29/23 06:31 Anion Gap 5 (3-11) 08/29/23 06:31 BUN 10 mg/dl (6-23) 08/29/23 06:31 Creatinine 0.85 mg/dl (0.6-1.4) 08/29/23 06:31 Est Cr Clr Drug Dosing 120.1 ml/min 08/29/23 06:31 Est GFR ( Amer) 120.3 ml/min 08/29/23 06:31 Est GFR (Non-Af Amer) 103.8 ml/min 08/29/23 06:31 BUN/Creatinine Ratio 11.8 (10-20) 08/29/23 06:31 Glucose 127 mg/dl (70-99(Fasting)) H 08/29/23 06:31 Calcium 8.5 mg/dl (8.6-10.3) L 08/29/23 06:31 Magnesium 1.9 mg/dl (1.7-2.4) 08/29/23 06:31 Total Bilirubin 0.4 mg/dl (0.2-1.0) 08/29/23 06:31 AST 18 U/L (13-39) 08/29/23 06:31 ALT 28 U/L (7-52) 08/29/23 06:31 Alkaline Phosphatase 76 U/L (34-104) 06/03/24 06:31 Total Protein 6.2 gm/dl (6.0-8.3) 08/29/23 06:31 Albumin 3.9 gm/dl (3.4-5.0) 08/29/23 06:31 Globulin 2.3 gm/dl (2.5-4.0) L 08/29/23 06:31 Albumin/Globulin Ratio 1.7 (0.9-2) 08/29/23 06:31 25-OH Vitamin D Total 15.9 ng/ml (30-100) L 08/26/23 10:50 Nasal Screen MRSA (PCR) Negative (Negative) 08/26/23 16:[address] 08/26/23 10:[address] DOSE: 532. mGy.cm HISTORY: Bilmalleolar ankle fracture - right TECHNIQUE: Multiaxial CT images of the right ankle were performed and reformatted in the sagittal and coronal plane without the use of contrast. A dose lowering technique was utilized adhering to the principles of ALARA. COMPARISON: Right ankle radiograph 08/26/2023. FINDINGS: There is again noted a comminuted and mildly displaced fracture involving the distal fibula. This demonstrates mild posterior angulation and up to 6 mm of posterior and lateral displacement. There is a slightly displaced oblique fracture within the medial malleolus which demonstrates up to 5 mm of distraction. No dislocation. Tiny fracture with associated callus formation at the posterior malleolus. Therefore, by definition this is consistent with a trimalleolar right ankle fracture. Diffuse subcutaneous edema within the ankle mild calcified formation without significant bony bridging at the distal fibular fracture. This is consistent with partial healing. Avulsion of the periosteum at the posterior malleolus is also noted. IMPRESSION: 1. Redemonstration of the mildly displaced trimalleolar right ankle fracture as described above. 2. No dislocation. 3. Mild calcified formation without significant bony bridging at the distal fibular fracture consistent with interval healing. 4. Diffuse soft tissue swelling within the right ankle. ACT 112: Negative or not required by law. Electronically signed by: New Masters M.D. 08/26/2023 1:25 PM Venous Doppler Study 08/26/23 10:40 RIGHT LOWER EXTREMITY VENOUS DOPPLER CLINICAL HISTORY: ankle fracture; swelling; immobility x 1 month COMPARISON STUDY: No previous studies for comparison. TECHNIQUE: Sonography of the deep venous system of the right lower extremity was performed. Compression and augmentation were evaluated. FINDINGS: The right common femoral, superficial femoral and popliteal veins were compressible. Augmentation was normal. Flow was shown within the deep calf vessels. IMPRESSION: No evidence of deep venous thrombus within the right lower extremity. ACT 112: Negative or not required by law. Electronically signed by: Edgar Sarmiento M.D. 08/26/2023 12:48 PM Ankle X-Ray 08/26/23 14:09 XR ankle LT min 3V routine CLINICAL HISTORY: Comparison review. Right ankle fracture. COMPARISON STUDY: Right ankle 08/26/2023. FINDINGS: No acute fracture or dislocation within the left ankle. The ankle mortise is intact. No soft tissue swelling. No radiopaque foreign bodies. Cartilage spaces are maintained for age. IMPRESSION: No fracture or dislocation within the left ankle. ACT 112: Negative or not required by law. Electronically signed by: New Masters M.D. 08/26/2023 3:55 PM Chest X-Ray 08/27/23 08:39 XR chest 1V portable HISTORY: pre-op COMPARISON: None. FINDINGS: No pneumothorax. No pleural effusions. There is mild elevation the right hemidiaphragm. A few bibasilar linear densities favor subsegmental atelectasis or scarring. Otherwise, the lungs are clear. The heart is normal in size. No evidence for pulmonary edema. IMPRESSION: 1. No acute process within the chest. 2. Mild elevation of the right hemidiaphragm with a few bibasilar linear densities suggesting subsegmental atelectasis. ACT 112: Negative or not required by law. Electronically signed by: New Masters M.D. 08/27/2023 10:41 AM (1) Ankle fracture Encounter type: initial encounter Fracture type: closed Laterality: right Qualified Code(s): S82.891A - Other fracture of right lower leg, initial encounter for closed fracture
--- NOTE | 2023-08-29 13:29 | Communication Note ---
Date of Service: August 29, 2023 Stopped by to see patient in follow up. As discussed with primary service day prior, will have next bowel movement checked for any blood however repeat h/h last evening stable at 13.1/37.7 and CBC this morning h/h 13.2/38.4. BUN/Cr stable as well at 10/0.85. NSAIDs to be avoided for the meantime. Future hold on Lovenox for prior to surgery on Tuesday. Patient sitting up in bed, 2 guards in room. Denies any fever/chills, no chest pain, shortness of breath, abdominal pain, nausea or vomiting or lightheaded/dizziness. Is passing gas but no further bowel movement. Bowel regimen to be continued and will monitor fecal occult blood but do not suspect needing to continue to follow given stability of labs/vitals and lack of symptoms. BP borderline on initial check this morning however again no lightheaded/dizziness and can monitor. Hospitalist service will sign off at this time. Please re-consult following surgery as needed or if fecal occult blood testing positive but can remain on PPI BID empirically for now however no dark/tarry stools reported and only reported BRIGHT red blood in toilet in patient with history of hemorrhoidal bleeding and would encourage more regular bowel movements to prevent constipation. Difficulty with increasing ambulation in prisoner due to limitations by guards in room.
--- NOTE | 2023-08-30 14:48 | Orthopedic Progress Note ---
Date of Service August 30, 2023 Assessment & Plan (1) Ankle fracture: Plan: Plan is for surgical intervention with Right ankle ORIF with syndesmosis stabilization this Tuesday morning (08/31/23). The hospital service will monitor and intervene regarding any GI bleeding issues as necessary. Right now hemoglobin is stable and he is hemodynamically stable. This is likely secondary to hemorrhoids and constipation rather than GI bleeding. NSAIDs will be held. Discussed with the patient the nature of the operation. We talked about risk benefits rehab recovery. This will be fairly extensive surgery and there will be pain involved. Arthritis and stiffness are significant risks. We will have to clean out the fracture sites and realign. Will also have to work on the syndesmosis. Autograft or allograft may be necessary and I reviewed with him the risks and benefits. He signed an informed consent. He will continue with his DVT prophylaxis with his last dose of Lovenox was last evening. I would like for him to be out of bed in a chair if possible however the residential guards indicate that that is not possible because of the shuttling issue. Patient will be NPO after midnight tonight. Admission and Anticipated Discharge Date Admission Date: August 26, 2023 Subjective This 48-year-old male inmate from [facility] is seen this morning for follow up evaluation of a right ankle trimalleolar fracture that he sustained back in late June. Patient is scheduled to undergo surgical intervention for his right ankle fracture with Dr. Hoskins tomorrow morning. He has no complaints at present. Currently he denies any chest pain, shortness of breath, fever, chills, sweats, nausea, vomiting, diarrhea or difficulty voiding. Review of Systems Review of Systems: All systems reviewed & are unremarkable except as noted in Subjective Physical Exam Physical Exam: Right lower extremity: Splint is clean dry and intact and left in place. Patient is able perform active straight leg raise test. He is able to do move his digits and intact light sensation to touch over the pads of all digits. Knee range of motion is full. Patient is neurovascularly intact. Results & Data Vital Signs (Past 12 Hours) Vital Signs Temp Pulse Resp BP Pulse Ox O2 Del Method 08/30/23 08:02 36.4 C L 83 16 122/63 94 Room Air Diagnostic Findings Laboratory Results WBC 5.41 K/ul (4.8-10.8) 08/29/23 06:31 RBC 4.26 M/uL (4.70-6.10) L 08/29/23 06:31 Hgb 13.2 g/dl (14.0-18.0) L 08/29/23 06:31 Hct 38.4 % (42.0-52.0) L 08/29/23 06:31 MCV 90.1 fL (80.0-100.0) 08/29/23 06:31 MCH 31.0 pg (25.0-34.0) 08/29/23 06: MCHC 34.4 g/dL (32.0-36.0) 08/29/23 06: RDW Std Deviation 38.5 fL (36.4-46.3) 08/29/23 06: RDW Coeff of Sarthak 11.9 % (11.5-14.5) 08/29/23 06:31 Plt Count 150 K/uL (130-400) 08/29/23 06:31 MPV 9.9 fL (9.4-12.4) 08/29/23 06:31 Immature Gran % (Auto) 0.3 % 08/26/23 10:50 Neut % (Auto) 57.1 % 08/26/23 10:50 Lymph % (Auto) 28.7 % 08/26/23 10:50 [place] % (Auto) 10.2 % 08/26/23 10:50 Eos % (Auto) 2.9 % 08/26/23 10:50 Baso % (Auto) 0.8 % 08/26/23 10:50 Neut # (Auto) 3.70 K/uL (1.40-6.50) 08/26/23 10:50 Lymph # (Auto) 1.86 K/uL (1.20-3.40) 08/26/23 10:50 [place] # (Auto) 0.66 K/uL (0.11-0.59) H 08/26/23 10:50 Eos # (Auto) 0.19 K/uL (0.00-0.50) 08/26/23 10:50 Baso # (Auto) 0.05 K/uL (0.00-0.20) 08/26/23 10:50 Immature Gran # (Auto) 0.02 K/uL (0.01-0.20) 08/26/23 10:50 Sodium 141 mmol/L (136-145) 08/29/23 06:31 Potassium 3.6 mmol/L (3.5-5.1) 08/29/23 06:31 Chloride 104 mmol/L (98-107) 08/29/23 06:31 Carbon Dioxide 32 mmol/L (21-32) 08/29/23 06:31 Anion Gap 5 (3-11) 08/29/23 06:31 BUN 10 mg/dl (6-23) 08/29/23 06:31 Creatinine 0.85 mg/dl (0.6-1.4) 08/29/23 06:31 Est Cr Clr Drug Dosing 120.1 ml/min 08/29/23 06:31 Est GFR ( Amer) 120.3 ml/min 08/29/23 06:31 Est GFR (Non-Af Amer) 103.8 ml/min 08/29/23 06:31 BUN/Creatinine Ratio 11.8 (10-20) 08/29/23 06:31 Glucose 127 mg/dl (70-99(Fasting)) H 08/29/23 06:31 Calcium 8.5 mg/dl (8.6-10.3) L 08/29/23 06:31 Magnesium 1.9 mg/dl (1.7-2.4) 08/29/23 06:31 Total Bilirubin 0.4 mg/dl (0.2-1.0) 08/29/23 06:31 AST 18 U/L (13-39) 08/29/23 06:31 ALT 28 U/L (7-52) 08/29/23 06:31 Alkaline Phosphatase 76 U/L (34-104) 08/29/23 06:31 Total Protein 6.2 gm/dl (6.0-8.3) 08/29/23 06:31 Albumin 3.9 gm/dl (3.4-5.0) 08/29/23 06:31 Globulin 2.3 gm/dl (2.5-4.0) L 08/29/23 06:31 Albumin/Globulin Ratio 1.7 (0.9-2) 08/29/23 06:31 25-OH Vitamin D Total 15.9 ng/ml (30-100) L 08/26/23 10:50 Nasal Screen MRSA (PCR) Negative (Negative) 08/26/23 16:[address] 08/26/23 10:[address] DOSE: 532. mGy.cm HISTORY: Bilmalleolar ankle fracture - right TECHNIQUE: Multiaxial CT images of the right ankle were performed and reformatted in the sagittal and coronal plane without the use of contrast. A dose lowering technique was utilized adhering to the principles of ALARA. COMPARISON: Right ankle radiograph 08/26/2023. FINDINGS: There is again noted a comminuted and mildly displaced fracture involving the distal fibula. This demonstrates mild posterior angulation and up to 6 mm of posterior and lateral displacement. There is a slightly displaced oblique fracture within the medial malleolus which demonstrates up to 5 mm of distraction. No dislocation. Tiny fracture with associated callus formation at the posterior malleolus. Therefore, by definition this is consistent with a trimalleolar right ankle fracture. Diffuse subcutaneous edema within the ankle mild calcified formation without significant bony bridging at the distal fibular fracture. This is consistent with partial healing. Avulsion of the periosteum at the posterior malleolus is also noted. IMPRESSION: 1. Redemonstration of the mildly displaced trimalleolar right ankle fracture as described above. 2. No dislocation. 3. Mild calcified formation without significant bony bridging at the distal fibular fracture consistent with interval healing. 4. Diffuse soft tissue swelling within the right ankle. ACT 112: Negative or not required by law. Electronically signed by: New Masters M.D. 08/26/2023 1:25 PM Venous Doppler Study 08/26/23 10:40 RIGHT LOWER EXTREMITY VENOUS DOPPLER CLINICAL HISTORY: ankle fracture; swelling; immobility x 1 month COMPARISON STUDY: No previous studies for comparison. TECHNIQUE: Sonography of the deep venous system of the right lower extremity was performed. Compression and augmentation were evaluated. FINDINGS: The right common femoral, superficial femoral and popliteal veins were compressible. Augmentation was normal. Flow was shown within the deep calf vessels. IMPRESSION: No evidence of deep venous thrombus within the right lower extremity. ACT 112: Negative or not required by law. Electronically signed by: Edgar Sarmiento M.D. 08/26/2023 12:48 PM Ankle X-Ray 08/26/23 14:09 XR ankle LT min 3V routine CLINICAL HISTORY: Comparison review. Right ankle fracture. COMPARISON STUDY: Right ankle 08/26/2023. FINDINGS: No acute fracture or dislocation within the left ankle. The ankle mortise is intact. No soft tissue swelling. No radiopaque foreign bodies. Cartilage spaces are maintained for age. IMPRESSION: No fracture or dislocation within the left ankle. ACT 112: Negative or not required by law. Electronically signed by: New Masters M.D. 08/26/2023 3:55 PM Chest X-Ray 08/27/23 08:39 XR chest 1V portable HISTORY: pre-op COMPARISON: None. FINDINGS: No pneumothorax. No pleural effusions. There is mild elevation the right hemidiaphragm. A few bibasilar linear densities favor subsegmental atelectasis or scarring. Otherwise, the lungs are clear. The heart is normal in size. No evidence for pulmonary edema. IMPRESSION: 1. No acute process within the chest. 2. Mild elevation of the right hemidiaphragm with a few bibasilar linear densities suggesting subsegmental atelectasis. ACT 112: Negative or not required by law. Electronically signed by: New Masters M.D. 08/27/2023 10:41 AM (1) Ankle fracture Encounter type: initial encounter Fracture type: closed Laterality: right Qualified Code(s): S82.891A - Other fracture of right lower leg, initial encounter for closed fracture
[2023-08-30] MEDS: hydrOXYzine HCl 25 MG TAB PO STA (16:57)
[2023-08-30] MEDS: HYDROCORTISONE HC 2.5% CRM 30GM TUBE EXT SCH (21:18)
[2023-08-30] MEDS: hydrOXYzine HCl 25 MG TAB PO PRN (23:28)
--- NOTE | 2023-08-31 04:15 | Hospitalist Progress Note ---
Date of Service August 30, 2023 Assessment & Plan (1) Ankle fracture: Plan: right to OR tomorrow with Dr Hoskins for ORIF cont vitamin D supplementation cont pain meds prn (2) PTSD (post-traumatic stress disorder): Plan: cont chronic meds including olanzapine 20mg HS + effexor 300mg daily (3) Vitamin D deficiency: Plan: 25-OH vit D level 15 cont vit D supplementation daily - ideally needs larger dose than 1000IU -- would increase to 5000IU daily (4) Bright red blood per rectum: Plan: no alarm features - denies recent weight loss, change in appetite, etc. statistically would likely be hemorrhoidal or a fissure but this deserves more w/u in near-future as outpatient (colonoscopy) in meantime - anusol cream TID fecal occult noted to be negative today Plan anxiety - add atarax 25mg prn Admission and Anticipated Discharge Date Admission Date: August 26, 2023 Subjective patient denies any new complaints does c/o constipation and still occasionally seeing bright red blood with wiping only has rectal discomfort when he is passing firm, hard stool c/o anxiety - asks for something for this Review of Systems Review of Systems: CV - no chest pain pulm - no dyspnea GI - no abd pain Physical Exam Physical Exam: gen - NAD neck - no JVD heart - RRR, s1 s2, no murmur lungs - CTA b/l abd - soft NT ND BS+ ext - right foot/ankle/leg in splint; left foot wnl; no edema on left; pulses L foot 2+ Results & Data Results & Data Vital Signs (Past 12 Hours) Vital Signs Temp Pulse Resp BP Pulse Ox O2 Del Method 08/30/23 19:40 36.7 C 78 14 121/81 94 Room Air Laboratory Results Laboratory Results - last 24 hr 08/30/23 Unknown Stool Occult Bld Scrn Negative PG Care Time/CCT Total # of Minutes Spent Total Time Spent with Patient: Total time spent is greater than 50% in coordination of care (as documented) at patient's floor/unit and/or counseling patient: Coding Level of Care Code 85303 SUB INP/OBS CARE 2/35MIN Diagnoses Closed fracture of right ankle, initial encounter S82.891A Encounter type: initial encounter Fracture type: closed Laterality: right PTSD (post-traumatic stress disorder) F43.10 Vitamin D deficiency E55.9 Bright red blood per rectum K62.5 (1) Ankle fracture Encounter type: initial encounter Fracture type: closed Laterality: right Qualified Code(s): S82.891A - Other fracture of right lower leg, initial encounter for closed fracture
[2023-08-31] MEDS ORDERED: ROPIVACAINE 0.5% 5 MG/ML 30 ML VIAL ONE (06:21)
[2023-08-31] MEDS: CHOLECALCIFEROL 125 MCG (5,000 UNITS) TAB PO SCH (07:51)
[2023-08-31] MEDS ORDERED: ONDANSETRON INJ 2 MG/ML 2 ML VIAL ONE (07:58)
[2023-08-31] MEDS ORDERED: LIDOCAINE 2% 2 ML VIAL/AMP(20MG/ML) INFIL ONE (07:58)
[2023-08-31] MEDS ORDERED: MIDAZOLAM HCL 1 MG/ML 2ML VIAL ONE (07:58)
[2023-08-31] MEDS ORDERED: DEXAMETHASONE SOD INJ 4 MG/ML VIAL ONE (07:58)
[2023-08-31] MEDS ORDERED: fentaNYL citrate PF 100 MCG/2 ML VIAL ONE (07:58)
[2023-08-31] MEDS ORDERED: PROPOFOL IV EMULSION 10 MG/ML 20 ML VIAL IV ONE (07:58)
[2023-08-31] MEDS ORDERED: DexMEDEtomidine HCL IV 100 MCG/ML VIAL IV ONE (08:20)
[2023-08-31] MEDS ORDERED: HYDROmorphone INJ 1 MG/ML SYRINGE IV PRN (08:32)
[2023-08-31] MEDS ORDERED: PROMETHAZINE HCL 6.25 MG in SODIUM CHLORIDE 0.9% 50 ML IV PRN (08:32)
[2023-08-31] MEDS ORDERED: ATROPINE SULFATE 0.1 MG/ML 10ML SYR IV PRN (08:32)
[2023-08-31] MEDS ORDERED: ePHEDrine sulfate 50 MG/ML AMP IV PRN (08:32)
[2023-08-31] MEDS ORDERED: fentaNYL citrate PF 100 MCG/2 ML VIAL IV PRN (08:32)
[2023-08-31] MEDS ORDERED: ONDANSETRON INJ 2 MG/ML 2 ML VIAL IV PRN ×2 (08:32→16:48)
[2023-08-31] MEDS: LACTATED RINGER'S 1,000 ML IV SCH (09:31)
--- NOTE | 2023-08-31 09:37 | Anesthesiology Consultation ---
Date of Service August 31, 2023 Assessment & Plan (1) Encounter for pre-operative examination: Chart Review Chart Review: Acceptable Risk for Surgery and Patient NOT seen in Pre Admission Testing Consults Requested none History Surgery Operation Date: 08/31/23 09:35 Proposed Procedures p Right Ankle Open Reduction Internal Fixation - Romeo Hoskins MD Height/Weight Height: 5 ft 9 in Weight: 91.5 kg Allergies Allergy/AdvReac Type Severity Reaction Status Date / Time No Known Allergies Allergy Unverified 08/26/23 11:47 Medications Home Medications Medication Instructions Recorded Confirmed Last Taken Effexor XR 300 mg PO PM 08/26/23 08/26/23 1 Day Ago ~08/25/23 300 mg Zyprexa 1 tab PO QPM 08/26/23 08/26/23 1 Day Ago ~08/25/23 20 mg buprenorphine 0.5 ml SC Q4WK 08/26/23 08/26/23 08/23/23 0.5 ML Active Medications Generic Name Dose Route Start Last Admin Trade Name Freq PRN Reason Stop Dose Admin Docusate Sodium 100 mg 08/26/23 21:00 08/31/23 07:51 Docusate Sodium 100 Mg Cap PO 09/25/23 20:59 Not Given BID ADORE Enoxaparin Sodium 30 mg 08/26/23 21:00 08/29/23 20:32 Enoxaparin Inj 30 Mg/0.3 Ml Syr SQ 09/25/23 20:59 30 mg Q12H ADORE Administration Hydrocortisone 1 appln 08/30/23 21:00 08/31/23 07:51 Hydrocortisone Hc 2.5% Crm 30gm Tube EXT 09/29/23 20:59 Not Given TID ADORE Hydroxyzine HCl 25 mg 08/30/23 16:49 08/30/23 23:28 Hydroxyzine Hcl 25 Mg Tab PO 09/29/23 16:48 25 mg Q6H PRN Administration anxiety or sleep Lactated Ringer's 1,000 mls @ 15 mls/hr 08/31/23 09:00 08/31/23 09:31 Lr IV 09/30/23 08:59 15 mls/hr .Q24H ADORE Administration Olanzapine 20 mg 08/26/23 21:00 08/30/23 21:18 Olanzapine 20 Mg Tablet PO 09/25/23 20:59 20 mg HS ADORE Administration Oxycodone/Acetaminophen 1 - 2 tab 08/26/23 10:34 08/30/23 21:26 Oxycodone/Acetaminophen 5mg/325mg Tab PO 09/09/23 10:33 1 tab Q4H PRN Administration Pain Pantoprazole Sodium 40 mg 08/28/23 21:00 08/31/23 07:51 Pantoprazole 40 Mg Tab PO 09/27/23 20:59 Not Given BID ADORE Polyethylene Glycol 17 gm 08/27/23 09:40 08/31/23 07:52 Polyethylene (Miralax) 17 Gm Pack PO 09/26/23 09:39 Not Given TID ADORE Venlafaxine HCl 300 mg 08/27/23 21:00 08/30/23 21:18 Venlafaxine Hcl Xr 150 Mg Capxr PO 09/26/23 20:59 300 mg HS ADORE Administration Vitamin D 125 mcg 08/31/23 09:00 08/31/23 07:51 Cholecalciferol 125 Mcg (5,000 Units) Tab PO 09/30/23 08:59 Not Given QAM ADORE NPO Date Last Intake of Fluids: 08/30/23 Time Last Intake of Fluids: 23:30 Date Last Intake of Solids: 08/30/23 Time Last Intake of Solids: 23:30 Past Medical History Medical History (Updated 08/31/23 @ 09:37 by Jon Michaels MD) Encounter for pre-operative examination HCV (hepatitis C virus) Opioid use disorder Cannabis use disorder Cocaine use disorder Nicotine dependence Constipation Adjustment disorder with anxiety PTSD (post-traumatic stress disorder) Exercise / Class Metabolic Activity II 4-5 Yardwork/Stairs/Walk up hill Past Anesthesia History No Hx of Anesthesia Complications and No Family Hx of Anesthesia Complications Social History Smoking Status: Former smoker Hx Alcohol Use: No Hx Substance Use: Yes substance use type: former substance user, marijuana, heroin and opiates Last Used Substance: Unknown Physical Exam Vital Signs Last Vital Signs Temp 36.8 C 08/31/23 09:20 Pulse 85 08/31/23 09:20 Resp 20 08/31/23 09:20 BP 125/84 08/31/23 09:20 Pulse Ox 95 08/31/23 09:20 O2 Del Method Room Air 08/31/23 09:20 Testing Laboratory Results 08/29/23 06:31 08/29/23 06:31 Electrocardiogram Date: 08/26/23 DICTATED BY: Torsten Snow MD Test Reason : Blood Pressure : / mmHG Vent. Rate : 061 BPM Atrial Rate : 061 BPM P-R Int : 184 ms QRS Dur : 086 ms QT Int : 448 ms P-R-T Axes : 024 000 011 degrees QTc Int : 450 ms Normal sinus rhythm Normal ECG No previous ECGs available Confirmed by Torsten Snow ([id number]) on 08/28/2023 6:41:50 PM
--- NOTE | 2023-08-31 10:29 | History & Physical Bridge Note ---
Date of Service August 31, 2023 History & Physical Bridge Note I have examined the patient, reviewed the History & Physical and in the interval since the performance of the History & Physical I have noted the following changes of clinical significance: no changes noted
[2023-08-31] MEDS: ceFAZolin 2,000 MG/15 ML IV PUSH IV ONE (11:08)
[2023-08-31] MEDS ORDERED: PHENYLEPHRINE 100MCG/ML 10ML SYR IV ONE (12:25)
[2023-08-31] MEDS ORDERED: SUGAMMADEX SODIUM 200 MG/2 ML VIAL IV ONE (12:25)
[2023-08-31] MEDS ORDERED: ePHEDrine sulfate 50 MG/5 ML SYR ONE (12:25)
[2023-08-31] MEDS ORDERED: HYDROmorphone INJ 1 MG/ML SYRINGE ONE (12:42)
[2023-08-31] MEDS ORDERED: LABETALOL HCL IV 5 MG/ML 20ML IV ONE (13:06)
[2023-08-31] MEDS ORDERED: SODIUM CHLORIDE 0.9% PF INJ 10 ML VIAL ONE (14:58)
[2023-08-31] MEDS ORDERED: ceFAZolin 330 MG/ML 1 GM VIAL ONE (14:58)
--- NOTE | 2023-08-31 15:29 | Operative Report ---
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 Surgeon Romeo Hoskins MD Director Drug Melanie Simon fellow. Sruthi RUIZ. Andrew Schuster MD. Estimated Blood Loss 100 Findings Consistent with Post-Op Diagnosis Specimens None Anesthesia Type General Regional Complications none Disposition Accompanied Patient To Recovery: No Disposition: Recovery Room Indications Patient is 48 years old. 6 weeks ago he sustained a fracture dislocation of his right ankle. A trimalleolar fracture. This was reduced in the [facility] ER. There were issues with follow-up. The patient came to my office last Tuesday, August 25. I identified the injury and admitted the patient to the hospital. Today was the first schedule congruent OR availability. Patient had extensive fracture blisters which have resolved. Ultrasound negative for DVT. He had been immobilized. I discussed with the patient that this is a chronic fracture. It will require much more extensive surgery than is typical for this injury and there will be more risk. I may want a bone graft the bone as well. He agreed to proceed. Please add a modifier for more difficult surgery. This operation required extensive surgical dissection beyond well which is necessary or usual for a fresh bimalleolar fracture. Mainly on the lateral side of the ankle with this required extensive debridement of the syndesmosis and takedown of the unhealed fibular fracture. Same thing on the medial side it required significant debridement to open up the scarred but unhealed medial malleolus fracture. Description of Procedure Informed consent. Patient identified. He identified the operative site as the right ankle. I marked with my initials. Preop surgical timeout performed. Preop dose of IV antibiotics given. Taken to the OR positioned supine on the operating room table. Bump placed under the right hip. Tourniquet on the right thigh. The leg was scrubbed and then prepped and draped in usual sterile fashion. Bone foam utilized. The exam under anesthesia revealed a grossly unstable ankle mortise with [id number] laxity. There is no significant swelling of the ankle. The fracture blisters have completely resolved and he had normal skin without erythema or inflammation. Fluoroscopic guidance utilized without surgical procedure DVT prophylaxis with foot pumps intraoperatively. Postop early mobility and Eliquis. Mechanical devices. Limb exsanguinated with the Esmarch. Tourniquet plated 250 mmHg. I made a medial incision about 6 to 8 cm in length centered over the medial malleolus. The periosteum was markedly thickened. The skin and subcutaneous tissues were elevated anterior and posterior. The saphenous neurovascular structures were identified somewhat incarcerated within the healing tissue and retracted anteriorly. I identified the fracture site and then made a longitudinal split parallel to the fracture site through the periosteum. I identified and protected the posterior tibial tendon which was visibly intact. I then made a medial arthrotomy and mobilized the medial malleolus. I cleaned out the medial gutter which had some scar tissue in it. The talar dome and tibial plafond looked unremarkable. The distal fragment was somewhat soft. I cleaned this extensively with a curette and rongeur down to healthy bone and drilled some 1.25 mm K wire holes into it to promote bleeding. I did the same thing on the proximal side. This fracture was then reduced provisionally and checked fluoroscopically. It was left on fixated at this point. This area was packed with a moist sponge and attention was turned to the fibula. I made a longitudinal incision approximately 20 cm in length over the distal fi bula. I explored proximally for the superficial peroneal nerve which was eventually identified coursing along the anterior compartment muscles as it already transition out of the lateral compartment. I then perform subperiosteal exposure of the fibula as necessary. Distally this was extensive. I identified the coronal plane fracture of the anterior fibula which was united and not stable and I did not take it down. It appeared to be in near-anatomic alignment. I went ahead and released the soft tissues posteriorly on the fibula down to the level of the posterior inferior talofibular ligament. I released anteriorly down to the level of the anterior talofibular ligament. In doing so I elevated the anterior periosteal flap up onto the tibia to expose the syndesmosis. Soft tissue was stripped off of the distal fracture fragment essentially circumferentially from the level of the syndesmosis proximally including the interosseous membrane. Connections to the posterior fracture spike were released. The syndesmosis was opened and found to have extensive scar tissue in it. I debrided this using freer and rongeur down to lower elwha bone which I left undisturbed is much as possible. I then took the fracture site down. This required extensive debridement with a rongeur and dissection with a freer and elevator to fully mobilize this. When mobilizing the syndesmosis I had a freer inserted into the syndesmosis to slightly pried open to get access for the rongeur and this for some reason resulted in avulsion of the anterior talofibular ligament off of the anterior portion of the distal fibula. Once the syndesmosis was mobilized and debrided and the fracture was mobilized and debrided I then explored different plates. I went over to the medial side and reduce the fracture anatomically and confirmed that the talus was adjacent to the medial malleolus without any gapping. I inserted 2 guidewires for the 4.0 cannulated screws and adjusted them x 2 to the appropriate location and then inserted long threaded partial 4 oh cancellous screws with a washer. The posterior screw was near the posterior tib tendon but did not impinge upon it. This resulted in good alignment and stability although inserting the anterior screw something happened where the fracture shifted a millimeter even though the guidewire was overreamed and never left the position it was then when it was anatomic. I went back to the lateral side. I looked at a one third tubular locking plate which would give me 2 or 3 screw holes distally. I eventually settled on a approximate 6 hole anatomic distal fibular locking plate. I aligned the plate as far posterior as possible and as far distal as possible so that it laid flush on the bone. I ensured that it was lined up with the proximal fragment. I pinned it in place and checked fluoroscopically. I then went ahead and with the plate against the bone and inserted 5 distal unicortical locking screws. I then inserted a screw proximal to the plate 4 mm longer and left proud. This was the pushing screw. I then used with Dr. Schuster's assistance a lamina screw machine adjuster automatic to push the plate and the distal fragment distally. A double clamping of the plate proximally was performed. This maneuver was done x 2 to achieve adequate length. It fit nicely into the syndesmosis and I restored the dime sign distally as compared to the contralateral side which had been done prior to surgery. Two 3.5 mm cortical screws were inserted along with 2 locking screws in the proximal construct. The distal of the cortical screws was inserted in somewhat of a lag mode to try to pull the distal portion of the proximal fragment into the plate. There was slight gapping at the fracture site due to the debridement. The distal bone of the medial malleolus and the lateral malleolus were both soft. The fixation remained in situ. Business Systems Advisor fluoroscopic images were obtained to confirm the reduction and alignment. Also in doing this maneuver clamping the plate down to the bone applied and internal rotation force onto the distal fragment to correct its external rotation. I then placed a syndesmotic clamp across the ankle and inserted a 4 cortical 3.5 mm syndesmosis screw. The syndesmosis was stable and appeared to be anatomically reduced. Business Systems Advisor fluoroscopic images were obtained. Along the way the tourniquet was let down. Meticulous hemostasis was achieved. Copious irrigation was performed and soft tissues were kept moist throughout the surgical procedure. The syndesmosis was stable. On the medial side the screws were tightened again and the periosteum was reapproximated over the fracture site with 2-0 Vicryl. The skin was closed with 3-0 Vicryl and jessica. Care was taken to avoid the saphenous neurovascular str ucture. Meticulous hemostasis was performed on both fracture sites. I made a small incision just medial to the tibial tubercle and dissected down to the periosteum which was elevated. I made three 4.5 mm drill holes and took the bone dust as well as a curette to get about a cc of cancellous bone graft which was then packed into the distal fibular fracture site. The thickened periosteum was able to be fully reapproximated over the distal two thirds of the plate taking care to avoid the superficial peroneal nerve. The skin was then closed in layers with 3-0 Vicryl and jessica. Leg was cleaned with wet and dry sponges a soft sterile dressing was applied Xeroform 4 x 4's ABD soft wrap and a posterior splint with the ankle neutral. Patient awakened from anesthesia without difficulty and taken to the recovery room in stable condition. There were no specimens or complications. Counts were correct blood loss estimated to be 100 cc. At the conclusion the operation there was no one to speak to. The dime sign look to be intact. The syndesmosis appeared to be symmetric as compared to the opposite side. The lateral shoulder of the talus was in line with the lateral border of the tibia. Synthes hardware was utilized. I attest to the content of the Intraoperative Record and any orders documented therein. Any exceptions are noted below.
--- NOTE | 2023-08-31 15:58 | Fluoroscopy Report ---
FL ankle RT min 3V RTN CLINICAL HISTORY: ORIF RIGHT ANKLE COMPARISON STUDY: 08/26/2023 FLUOROSCOPY TIME: 66.3 seconds FLUOROSCOPY IMAGES: 3 EXPOSURE DOSE: 1.50 mGy FINDINGS: Lateral plate and screw fusion with syndesmotic screw and 2 medial malleolar screws fixatin g the acute bimalleolar ankle fracture with improved near anatomic alignment. Expected postoperative soft tissue swelling with deep tissue air. IMPRESSION: Fluoroscopic assistance as above. ACT 112: Negative or not required by law. Electronically signed by: Bubba Fong M.D. 08/31/2023 3:57 PM
--- NOTE | 2023-08-31 16:31 | Operative Report ---
Post Operative Report Pre & Post Diagnosis Operation Date: 08/31/23 09:35 Pre-Op Diagnosis: Right ankle fracture Post-Op Diagnosis: Right ankle fracture I identified the patient and participated in the time-out.: Yes Procedure Operation Date: 08/31/23 09:35 Actual Procedures p Right Ankle Open Reduction Internal Fixation(Right) - Romeo Hoskins MD Surgeon Romeo Hoskins MD Boiler Helper Melanie Simon fellow. Sruthi RUIZ. Andrew Schuster MD. Estimated Blood Loss 100 Findings Consistent with Post-Op Diagnosis Same as postoperative diagnosis. Specimens None Description of Procedure Please see detailed operative note. I attest to the content of the Intraoperative Record and any orders documented therein. Any exceptions are noted below.
--- NOTE | 2023-08-31 16:34 | Anesthesiology Progress Note ---
Date of Service August 31, 2023 Anesthesia Post Procedure Vital Signs Vital Signs: Temp Pulse Pulse Pulse Resp BP BP 08/31/23 16:25 101 H 10 L 119/77 08/31/23 16:15 97 H 11 L 120/78 08/31/23 16:08 36.1 C L 97 H 10 L 122/80 08/31/23 09:20 36.8 C 85 20 125/84 08/31/23 07:03 36.5 C 82 14 114/78 08/30/23 19:40 36.7 C 78 14 121/81 Pulse Ox O2 Del Method O2 Flow Rate 08/31/23 16:25 100 Room Air 5 08/31/23 16:15 100 Room Air 10 08/31/23 16:08 100 Oxymask 10 08/31/23 09:20 95 Room Air 08/31/23 07:03 92 Room Air 08/30/23 19:40 94 Room Air Pain Intensity Right Ankle: Pain Intensity: 5 Transfer of Care Handoff Completed per policy Notes Mental Status: alert / awake / arousable Patient Amnestic to Procedure: Yes Nausea / Vomiting: adequately controlled Pain: adequately controlled Airway Patency, RR, SpO2: stable & adequate BP & HR: stable & adequate Hydration State: stable & adequate Anesthetic Complications: no major complications apparent
[2023-08-31] MEDS ORDERED: bisacodyL 10 MG SUPP PR PRN (16:48)
[2023-08-31] MEDS ORDERED: METOCLOPRAMIDE HCL INJ 5 MG/ML 2 ML VIAL IV PRN (16:48)
[2023-08-31] MEDS ORDERED: MAGNESIUM HYDROXIDE SUSP 30 ML UDC PO PRN (16:48)
[2023-08-31] MEDS ORDERED: NALOXONE HCL 0.4 MG/1 ML VIAL/CARP IV PRN (16:48)
[2023-08-31] MEDS: SODIUM CHLORIDE 0.9% 1,000 ML IV SCH (17:03)
[2023-08-31] MEDS: FERROUS GLUCONATE 324 MG TAB PO SCH (17:58)
[2023-08-31] MEDS: ASCORBIC ACID 500 MG TAB PO SCH (17:58)
--- NOTE | 2023-08-31 18:37 | Orthopedic Progress Note ---
Date of Service August 31, 2023 Assessment & Plan Admission and Anticipated Discharge Date Admission Date: August 26, 2023 Orthopedic Progress Note Block still working. No problems reported. Discussed surgery. Dressing clean and dry. Foot warm with capillary refill less than 2 seconds. DP pulse 1+. No sensation or movement secondary to block. Discussed pain management and nonweightbearing. Routine postop antibiotics. Anticoagulation beginning in the morning. PT.
[2023-08-31] MEDS: ceFAZolin 2000MG 2,000 MG/15 ML SYR IV SCH (21:28)
[2023-08-31] MEDS: DOCUSATE SODIUM 100 MG CAP PO SCH (21:29)
[2023-08-31] MEDS: OLANZapine 20 MG TABLET PO SCH (21:30)
[2023-08-31] MEDS: SENNA 8.6 MG TAB PO SCH (21:31)
[2023-08-31] MEDS: VENLAFAXINE HCL XR 150 MG CAPXR PO SCH (21:31)
[2023-09-01 06:52] LABS: Hemoglobin 11.5 g/dl (14.0-18.0); Mean Corpuscular Hemoglobin 31.7 pg (25.0-34.0); Mean Corpuscular Hgb Conc 34.8 g/dL (32.0-36.0); Mean Corpuscular Volume 90.9 fL (80.0-100.0); Mean Platelet Volume 9.8 fL (9.4-12.4); Platelet Count 157 K/uL (130-400); RDW Coefficient of Variation 12.3 % (11.5-14.5); RDW Standard Deviation 40.2 fL (36.4-46.3); Red Blood Count 3.63 M/uL (4.70-6.10); White Blood Count 16.34 K/ul (4.8-10.8)
--- NOTE | 2023-09-01 07:50 | Orthopedic Progress Note ---
Date of Service September 01, 2023 Assessment & Plan (1) Ankle fracture: Plan: Stable postop. Labs noted. White count elevated secondary to stress. H&H okay. Plan is for Eliquis. Postop antibiotics. Nonweightbearing. PT and OT. Ice and elevation. I think he still has persistent nerve block and will continue to monitor. Admission and Anticipated Discharge Date Admission Date: August 26, 2023 Subjective No problems reported. There is some pain. He reports persistent tingling and numbness in the operative extremity. Physical Exam Physical Exam: He is faintly able to wiggle his toes but does not have significant range of motion or strength. He reports numbness throughout the forefoot. There is a trace DP pulse and the foot is warm with capillary refill less than 2 seconds. Brisk and warm. Results & Data Vital Signs (Past 12 Hours) Vital Signs Temp Pulse Resp BP Pulse Ox O2 Del Method 09/01/23 07:14 36.4 C L 94 H 16 100/65 96 Room Air 09/01/23 04:11 36.4 C L 96 H 15 99/59 L 95 Room Air 09/01/23 03:58 36.9 C 94 H 18 97/64 L 92 Room Air 08/31/23 23:33 37.1 C 99 H 18 104/70 92 Room Air Laboratory Results 09/01/23 08/31/23 Range/Units 06:19 09:00 WBC 16.34 H (4.8-10.8) K/ul RBC 3.63 L (4.70-6.10) M/uL Hgb 11.5 L (14.0-18.0) g/dl Hct 33.0 L (42.0-52.0) % MCV 90.9 (80.0-100.0) fL MCH 31.7 (25.0-34.0) pg MCHC 34.8 (32.0-36.0) g/dL RDW Std Deviation 40.2 (36.4-46.3) fL RDW Coeff of Sarthak 12.3 (11.5-14.5) % Plt Count 157 (130-400) K/uL MPV 9.8 (9.4-12.4) fL SARS-CoV-2, RNA, NAAT NEGATIVE (NEGATIVE) (1) Ankle fracture Encounter type: initial encounter Fracture type: closed Laterality: right Qualified Code(s): S82.891A - Other fracture of right lower leg, initial encounter for closed fracture
[2023-09-01] MEDS: HYDROmorphone INJ 0.5 MG/0.5 ML SYR IV PRN (08:09)
[2023-09-01] MEDS: APIXABAN 2.5 MG TAB PO SCH (08:09)
[2023-09-01] MEDS: MULTIVITAMIN TAB PO SCH (08:09)
[2023-09-01] MEDS: busPIRone 5 MG TAB PO SCH (18:01)
--- NOTE | 2023-09-02 09:09 | Orthopedic Progress Note ---
Date of Service September 02, 2023 Assessment & Plan (1) Ankle fracture: Plan: Postop day 2-status post open reduction internal fixation right bimalleolar ankle fracture with Dr. Hoskins Maintain nonweightbearing right lower extremity at all times. Use crutches to assist with ambulation. Splint on right lower extremity at all times. Keep the splint clean and dry. Regular diet as ordered. Pain medication as ordered. PT and OT. May do range of motion of the knees and hips as tolerated. Will discuss findings with Dr. Hoskins. Plan for discharge later today after seen by PT and OT. Admission and Anticipated Discharge Date Admission Date: August 26, 2023 Subjective Resting in bed comfortably. States that he has a lot of pain. He states that due to his buprenorphine that he gets monthly his pain medications are unable to assist with his pain. He does get some relief with Motrin. He has been out of bed with physical therapy yesterday. He has been keeping his leg elevated on 2 pillows. Denies any numbness or tingling. He is tolerating a regular diet. Going to the bathroom normally. He states that yesterday he noted 1 drop of blood and some burning with urination after surgery. He states that it is back to normal today. He has no pain with urination today. Denies any further blood in bowel movements. Physical Exam Musculoskeletal: Exam of his right lower extremity: Dressings were removed with his right ankle today. His postoperative incisions are clean, dry and intact. There is some dried bloody drainage over the medial and lateral incision, more on the medial side. No active bleeding. Andrea are in place. Calf is supple and nontender. Mild edema into the right foot and ankle. Dorsalis pedis and posterior tibial pulses are 1+. Normal sensation throughout left foot. He is able to wiggle his toes comfortably. He tolerates gentle dorsiflexion and plantarflexion of his right ankle. Full knee range of motion. He is able to independently straight leg raise. New dressings with Adaptic, 4 x 4, ABD, posterior splint and Eliot bandage was applied to the right lower extremity. Results & Data Vital Signs (Past 12 Hours) Vital Signs Temp Pulse Resp BP Pulse Ox O2 Del Method 09/02/23 07:57 36.7 C 84 16 121/79 94 Room Air 09/02/23 06:00 36.7 C 90 14 125/72 93 Room Air 09/02/23 02:00 36.7 C 93 H 16 128/76 94 Room Air 09/01/23 21:05 36.6 C 96 H 18 130/71 95 Room Air (1) Ankle fracture Encounter type: initial encounter Fracture type: closed Laterality: right Qualified Code(s): S82.891A - Other fracture of right lower leg, initial encounter for closed fracture
--- NOTE | 2023-09-02 09:30 | Discharge Summary ---
Date of Service September 02, 2023 Admission HPI Per Admitting Provider Alex Read is a 48 year old Male, [facility] inmate, who presents today for evaluation of right ankle fracture. Patients reports he had a fall while standing on 07/23/2023. He was unable to bear weight after the fall. He was taking to the ED where x-rays were obtained and placed in a splint. He was told at that time he would need surgery but has not been seen since. He has been relatively nonweightbearing except for to help balance while standing but is unable to bear full weight. He does note pain at rest and is taking ibuprofen and Tylenol for pain. Denies paraesthesia, numbness/tingling No history of blood clot/bleeding/embolism, diabetes, seizure, HTN, or CVD. No history of Staph or MRSA. No metal allergies. Discharge Data Consultations 08/26/23 10:34 Consult Internal Medicine Routine Procedures Performed Operation Date: 08/31/23 09:35 Actual Procedures p Right Ankle Open Reduction Internal Fixation(Right) - Romeo Hoskins MD Hospital Course (1) Ankle fracture: Alex Read has past medical history of opioid dependence, hepatitis C who was admitted to [facility] on Saturday, August 26, [address] Hoskins. He presented as an outpatient with an unstable 5-week old ankle fracture from [facility]. He had been nonweightbearing from the time of his initial injury. He was in a posterior splint. He had multiple subacute healing blisters of his right ankle and lower leg. He was admitted for pain control and as well to find some OR time for an open reduction internal fixation of the right bimalleolar ankle fracture. Hospitalist consult was obtained for perioperative medical management. Home medications were continued. Upon admission he had a ultrasound of the right lower extremity to rule out DVT which was negative. A posterior and sugar-tong splint was applied to the right leg after that ultrasound was completed. CBC, BMP were performed preoperatively which were within normal limits. He was given Percocet, Tylenol, IV Dilaudid to use as needed for pain. He was placed on Lovenox 30 mg twice daily for DVT prophylaxis. On Tuesday, August 27, 2023 he noticed some bright red blood in his stool. Hemoccult stool test was negative. He has had no bright red blood per rectum since. Dr. Hoskins was able to get operating room time on Tuesday, August 31, 2023. Patient was placed on the OR schedule. Risks and benefits of the procedure were discussed and informed consent was obtained. His Lovenox was held starting August 3, p.m. dose. He was made n.p.o. after midnight on August 31, 2023. On August 31, 2023 he underwent an open reduction internal fixation of his right ankle with Dr. Hoskins. His surgery was performed with general anesthesia and a peripheral nerve block. He tolerated the procedure well without any intraoperative complications. He was allowed out of bed with the assistance of crutches or walker. He was to remain nonweightbearing at all times in the right lower extremity. Posterior splint was applied. He was advised to keep it clean and dry. Physical therapy and Occupational Therapy consults were placed. He was out of bed with them on postoperative day 1. [place] comfortable being nonweightbearing with the assistance of crutches. Lab results showed vitamin D deficiency. He was placed on 5000 international units (125 mcg) per day. He was also placed on iron and vitamin C supplements after surgery. He was given Colace to use while inpatient and while on pain medication and iron supplement. On postoperative day 1 he still had some tingling and numbness of the right foot. This resolved throughout midday. His pain became worse but was relatively well-controlled on Percocet and IV Dilaudid. Postoperative day 2 his dressings were changed and a new dressing was applied. His incisions were clean and dry. On postoperative day 2 he was deemed stable for discharge. He was discharged back to [facility] on September 02, 2023. Discharge instructions were reviewed. (2) Vitamin D deficiency: Will continue vitamin D supplementation for 6 weeks postoperatively as outpatient.
== END 2023-09-02 13:38 | DRG 493 ==
LOC: 3W 10:35
DX: Z86.19 Personal history of other infectious and parasitic diseases; F11.21 Opioid dependence, in remission; K62.5 Hemorrhage of anus and rectum; S82.851A Displaced trimalleolar fracture of right lower leg, initial encounter for closed fracture; K59.00 Constipation, unspecified; E55.9 Vitamin D deficiency, unspecified; Y92.149 Unspecified place in prison as the place of occurrence of the external cause; W18.39XA Other fall on same level, initial encounter; F43.10 Post-traumatic stress disorder, unspecified; Z87.891 Personal history of nicotine dependence

== ENCOUNTER 2023-09-13 10:53 | Inpatient (IN) ==
[2023-09-13] MEDS ORDERED: VANCOMYCIN CONSULT ACTIVE PRN ×3 (11:03→17:26)
[2023-09-13] MEDS ORDERED: Patient's HEIGHT &/or WEIGHT Needed SCH (11:15)
--- NOTE | 2023-09-13 11:26 | History & Physical Report ---
Date of Service September 13, 2023 Assessment & Plan (1) Postoperative wound infection: Plan: -Wound cultures of the medial wound of the left ankle were obtained today. Will send these to the lab for further analysis. -Maintain nonweightbearing left lower extremity. -Use walker or crutches to assist with ambulation. -Will obtain CBC, CRP, ESR and blood cultures upon arrival to the emergency room -Will start IV vancomycin and IV cefepime upon arrival to the emergency room -He has been placed on the operating room scheduled for later this afternoon. His last meal was at 6 AM. He most likely can have his incision and drainage of his left ankle medial wound with Dr. Hoskins after 2 PM. Informed consent has been obtained. -He did have his Eliquis a.m. dose this morning. Will possibly plan to give Kcentra half an hour prior to his procedure. Will discuss with Dr. Dennis. -N.p.o. now-4 OR later today. -Patient understands and agrees with the plan. He will be admitted postoperatively for continuation of IV antibiotics. We will restart his Eliquis postoperatively. History of Present Illness Chief Complaint: s/p right ankle ORIF of bimalleolar component of trimalleolar fracture with bone grafting of fibular defect and syndesmosis stabilization; DOS: 08/31/2023 Primary Care Provider: AKI Johnson HAYDEE Read is a 48 year old Male who presents today for follow-up s/p the above noted procedure. Patient reports after surgery he was put in the [facility] for one night before he was put back in general population. He had to walk for 4 days following surgery because the wheelchair does not fit into his cell. He was then placed back in the [facility]. He is getting Eliquis, Vitamin D, and ibuprofen. He did have his Eliquis already today. He reports a 6/10 pain in his ankle and localizes the majority of his pain over the medial aspect. There is drainage from the medial incision. He describes a possible fever during which he became extremely warm and then diaphoretic. Denies any new injury. Office cultures were obtained of the right medial wound. The wound does appear to and be infected. Will plan on doing a direct admission from the office. Called admissions at the hospital and they do not have a bed available. He was advised to go directly to the emergency room. Upon arrival to the emergency room we will obtain laboratory work and start his IV antibiotics. He will need to be n.p.o. and plans for I&D of the left ankle offer later this afternoon. Informed consent has been obtained and on his chart. Allergies Allergy/AdvReac Type Severity Reaction Status Date / Time No Known Allergies Allergy Unverified 08/26/23 11:47 Home Medications Medication Instructions Recorded Confirmed Type Effexor XR 300 mg PO PM 08/26/23 08/26/23 History Zyprexa 1 tab PO QPM 08/26/23 08/26/23 History buprenorphine 0.5 ml SC Q4WK 08/26/23 08/26/23 History acetaminophen 500 mg tablet 1,000 mg (2 x 500 mg) PO Q8H 30 09/02/23 Rx (Tylenol Extra Strength) days #180 tabs apixaban 2.5 mg tablet (Eliquis) 2.5 mg PO BID 14 days #28 tabs 09/02/23 Rx ascorbic acid (vitamin C) 500 mg 500 mg PO BIDM 14 days #28 tabs 09/02/23 Rx tablet (Vitamin C) cholecalciferol (vitamin D3) 125 125 mcg PO QAM 42 days #42 tabs 09/02/23 Rx mcg (5,000 unit) tablet docusate sodium 100 mg capsule 100 mg PO BID 14 days #28 caps 09/02/23 Rx ferrous gluconate 324 mg (38 mg 324 mg PO BIDM 14 days #28 tabs 09/02/23 Rx iron) tablet hydrocodone 5 mg-acetaminophen 325 1 tab PO Q4H PRN pain #15 tabs 09/02/23 Rx mg tablet Past Med/Surg History Problem List (Updated 09/13/23 @ 11:29 by Sruthi Pritchett PA-C) Postoperative wound infection Bright red blood per rectum Vitamin D deficiency Ankle fracture Medical History (Updated 09/13/23 @ 11:29 by Sruthi Pritchett PA-C) Encounter for pre-operative examination HCV (hepatitis C virus) Opioid use disorder Cannabis use disorder Cocaine use disorder Nicotine dependence Constipation Adjustment disorder with anxiety PTSD (post-traumatic stress disorder) Social History Smoking Status: Former smoker Hx Alcohol Use: No Hx Substance Use: Yes Last Used Substance: Unknown Preferred Language: Georgian Communication Ability: Effective Hip Hop Artist Required: No Beliefs That Will Affect Care: None Current Living Situation: Other Current Living Situation Comment: [facility] Feels Safe at Home: Yes Assistive Devices: None Review of Systems Constitutional: + fever, + chills and + fatigue; no swea ts and no body aches Respiratory: no cough and no chest congestion Cardiovascular: no chest pain, no chest pain at rest, no chest pain with activity, no palpitations, no syncope and no edema Gastrointestinal: no nausea and no vomiting Genitourinary: no dysuria or no urinary frequency Musculoskeletal: as per Subjective / HPI Integumentary: + erythema (around medial incision) Neurologic: + gait abnormality and + unsteadiness; n o tingling and no numbness Hematologic / Lymphatic: no easy bleeding and no easy bruising Physical Exam Constitutional: WD/WN, vitals as above Eyes: PERRL, conjunctivae normal, anicteric sclerae ENMT: external ear and nose normal, oropharynx normal Neck: trachea midline, no thyromegaly Respiratory: normal respiratory effort, lungs clear to auscultation Cardiovascular: RRR, no murmur, no edema Chest (Breasts): Chest: normal inspection of chest Gastrointestinal (Abdomen): normal bowel sounds, soft, nontender, no hepatosplenomegaly Musculoskeletal: Focus on the right lower extremity: Palpable DP and PT pulses Limited inversion strength and movement Intact plantarflexion, dorsiflexion, and eversion 4/5 strength: ankle and toe plantarflexion, dorsiflexion, and eversion Lateral incision looks good. No drainage but erythema distally and erythema over his foot Significant erythema over medial ankle with drainage over the distal portion of his wound. Medial ankle tenderness Knee incision is benign Results & Data Results & Data Vital Signs (Past 12 Hours) Vital Signs Temp Pulse Resp BP Pulse Ox O2 Del Method 09/13/23 11:05 36.7 C 97 H 20 122/81 97 Room Air Laboratory Results will order CBC, ESR, CRP, blood cultures upon arrival in ED. wound cultures obtained in the office today 09/13/[address] Hoskins obtained and personally interpreted 3 views of the right ankle, stored in [facility], which shows dime sign is intact. Andrea in place. internal fixation of medial and lateral malleoli. Syndesmosis screw in place. Ankle mortise and syndesmosis intact. Minimally displacement of medial malleolar fracture. Code Status & VTE Plan VTE Prophylaxis Plan VTE Prophylaxis will be ordered: Yes
[2023-09-13] MEDS ORDERED: Patient's HEIGHT &/or WEIGHT Needed STA (11:43)
[2023-09-13] MEDS: CEFEPIME 20 ML IV STA (11:51)
[2023-09-13 12:02] LABS: Basophils # (auto) 0.04 K/uL (0.00-0.20); Basophils % (auto) 0.3 %; Eosinophils # (auto) 0.13 K/uL (0.00-0.50); Eosinophils % (auto) 1.1 %; Hemoglobin 11.4 g/dl (14.0-18.0); Immature Granulocytes # (auto) 0.11 K/uL (0.01-0.20); Immature Granulocytes % (auto) 0.9 %; Lymphocytes # (auto) 1.58 K/uL (1.20-3.40); Lymphocytes % (auto) 13.4 %; Mean Corpuscular Hemoglobin 29.7 pg (25.0-34.0); Mean Corpuscular Hgb Conc 31.7 g/dL (32.0-36.0); Mean Corpuscular Volume 93.8 fL (80.0-100.0); Mean Platelet Volume 9.6 fL (9.4-12.4); Monocytes # (auto) 1.16 K/uL (0.11-0.59); Monocytes % (auto) 9.8 %; Neutrophils # (auto) 8.79 K/uL (1.40-6.50); Neutrophils % (auto) 74.5 %; Platelet Count 353 K/uL (130-400); RDW Coefficient of Variation 12.2 % (11.5-14.5); RDW Standard Deviation 41.5 fL (36.4-46.3); Red Blood Count 3.84 M/uL (4.70-6.10); White Blood Count 11.81 K/ul (4.8-10.8)
[2023-09-13] MEDS: VANCOMYCIN HCL 2,000 MG in SODIUM CHLORIDE 0.9% 500 ML IV STA (12:15)
[2023-09-13 12:18] LABS: BUN Creatinine Ratio 22.1 (10-20); C Reactive Protein 18.58 mg/dl (0-0.5); Calcium 9.8 mg/dl (8.6-10.3); Creatinine Clr Calc Pharmacy 132.2 ml/min; Est GFR (African American) 125.2 ml/min; Est GFR (Non-African American) 108.1 ml/min; Potassium 3.6 mmol/L (3.5-5.1)
[2023-09-13] MEDS ORDERED: MIDAZOLAM HCL 1 MG/ML 2ML VIAL ONE (14:01)
[2023-09-13] MEDS ORDERED: ONDANSETRON INJ 2 MG/ML 2 ML VIAL ONE (14:02)
[2023-09-13] MEDS ORDERED: PROPOFOL IV EMULSION 10 MG/ML 20 ML VIAL IV ONE ×2 (14:02→15:53)
[2023-09-13] MEDS ORDERED: LIDOCAINE 2% 20 MG/ML 5 ML SYR IV ONE (14:02)
[2023-09-13] MEDS ORDERED: fentaNYL citrate PF 100 MCG/2 ML VIAL ONE (14:02)
[2023-09-13] MEDS ORDERED: ROCURONIUM BROMIDE 10 MG/ML 5 ML VIAL IV ONE (14:02)
[2023-09-13] MEDS ORDERED: DEXAMETHASONE SOD INJ 4 MG/ML VIAL ONE (14:02)
--- NOTE | 2023-09-13 14:02 | History & Physical Bridge Note ---
Date of Service September 13, 2023 History & Physical Bridge Note I have examined the patient, reviewed the History & Physical and in the interval since the performance of the History & Physical I have noted the following changes of clinical significance: no changes noted The right side is the operative site not the left. Patient has limited but relatively painless ankle range of motion. Discomfort is posteromedial. White count sed rate CRP all elevated. Afebrile. Plan for irrigation debridement possible exchange of medial hardware.
[2023-09-13] MEDS ORDERED: PROMETHAZINE HCL 6.25 MG in SODIUM CHLORIDE 0.9% 50 ML IV PRN (14:22)
[2023-09-13] MEDS ORDERED: ATROPINE SULFATE 0.1 MG/ML 10ML SYR IV PRN (14:22)
[2023-09-13] MEDS ORDERED: ONDANSETRON INJ 2 MG/ML 2 ML VIAL IV PRN ×2 (14:22→17:18)
[2023-09-13] MEDS ORDERED: ePHEDrine sulfate 50 MG/ML AMP IV PRN (14:22)
--- NOTE | 2023-09-13 14:22 | Anesthesiology Consultation ---
Date of Service September 13, 2023 Assessment & Plan Chart Review Chart Review: Acceptable Risk for Surgery and Patient NOT seen in Pre Admission Testing Consults Requested none ASA ASA2 Proposed Anesthesia Anesthesia Type: General Risk / Benefits Reviewed With: PT / POA / Parent / Guardian, Accepts Plan and Informed Consent Obtained History Surgery Operation Date: 09/13/23 08:50 Proposed Procedures p Right Ankle Incision and Drainage - Romeo Hoskins MD Height/Weight Height: 5 ft 9 in Weight: 91 kg Allergies Allergy/AdvReac Type Severity Reaction Status Date / Time No Known Allergies Allergy Unverified 08/26/23 11:47 Medications Home Medications Medication Instructions Recorded Confirmed Last Taken Effexor XR 300 mg PO PM 08/26/23 08/26/23 1 Day Ago ~08/25/23 300 mg Zyprexa 1 tab PO QPM 08/26/23 08/26/23 1 Day Ago ~08/25/23 20 mg buprenorphine 0.5 ml SC Q4WK 08/26/23 08/26/23 08/23/23 0.5 ML acetaminophen 500 mg tablet 1,000 mg (2 x 500 mg) PO Q8H 30 09/02/23 Unknown (Tylenol Extra Strength) days #180 tabs apixaban 2.5 mg tablet (Eliquis) 2.5 mg PO BID 14 days #28 tabs 09/02/23 Unknown ascorbic acid (vitamin C) 500 mg 500 mg PO BIDM 14 days #28 tabs 09/02/23 Unknown tablet (Vitamin C) cholecalciferol (vitamin D3) 125 125 mcg PO QAM 42 days #42 tabs 09/02/23 Unknown mcg (5,000 unit) tablet docusate sodium 100 mg capsule 100 mg PO BID 14 days #28 caps 09/02/23 Unknown ferrous gluconate 324 mg (38 mg 324 mg PO BIDM 14 days #28 tabs 09/02/23 Unknown iron) tablet hydrocodone 5 mg-acetaminophen 325 1 tab PO Q4H PRN pain #15 tabs 09/02/23 Unknown mg tablet Active Medications Generic Name Dose Route Start Last Admin Trade Name Freq PRN Reason Stop Dose Admin Vancomycin HCl 2,000 mg/ 540 mls @ 200 mls/hr 09/13/23 11:59 09/13/23 12:15 Sodium Chloride IV 09/13/23 14:40 200 mls/hr NOW STA Administration NPO Date Last Intake of Fluids: 09/13/23 Time Last Intake of Fluids: 06:00 Date Last Intake of Solids: 09/13/23 Time Last Intake of Solids: 06:00 Past Medical History Medical History (Updated 09/13/23 @ 11:29 by Sruthi Pritchett PA-C) Encounter for pre-operative examination HCV (hepatitis C virus) Opioid use disorder Cannabis use disorder Cocaine use disorder Nicotine dependence Constipation Adjustment disorder with anxiety PTSD (post-traumatic stress disorder) Exercise / Class Metabolic Activity II 4-5 Yardwork/Stairs/Walk up hill Past Anesthesia History No Hx of Anesthesia Complications and No Family Hx of Anesthesia Complications History of PONV No Hx of PONV and No Hx of Motion Sickness Social History Smoking Status: Former smoker Hx Alcohol Use: No Hx Substance Use: Yes substance use type: former substance user, marijuana, heroin and opiates Last Used Substance: Unknown Physical Exam Vital Signs Last Vital Signs Temp 37.0 C 09/13/23 14:09 Pulse 97 H 09/13/23 14:09 Resp 16 09/13/23 14:09 BP 129/83 09/13/23 14:09 Pulse Ox 97 09/13/23 14:09 O2 Del Method Room Air 09/13/23 14:10 ENMT Mouth: no dentition abnormality Thyromental Distance: > or= 3.5 Finger Breadths Mallampati Class: II Neck normal visual inspection Respiratory normal respiratory effort Auscultation: lungs clear to auscultation bilaterally Cardiovascular Rate/Rhythm: regular rate and regular rhythm Psychiatric Orientation: alert Testing Laboratory Results 09/13/23 11:30 09/13/23 11:30
[2023-09-13] MEDS ORDERED: ACETAMINOPHEN 1000 MG/100 ML IV IV ONE (14:27)
[2023-09-13] MEDS: KCENTRA (500unit vial) 2000 units IVP IV ONE (14:30)
[2023-09-13] MEDS ORDERED: TRANEXAMIC ACID / 0.7% NACL 1000MG/100ML BAG IV ONE (14:55)
[2023-09-13] MEDS ORDERED: KETAMINE HCL 10MG/ML SYR ONE (15:19)
[2023-09-13] MEDS ORDERED: HYDROmorphone INJ 2 MG/ML SYR/VIAL ONE (15:48)
[2023-09-13] MEDS: TRANEXAMIC ACID / 0.7% NACL 1000MG/100ML BAG IV ONE (16:09)
[2023-09-13] MEDS: BUPIVACAINE 0.5 % 5 MG/1 ML MPF 30ML VIAL INFIL ONE ×2 (16:40→21:14)
[2023-09-13] MEDS: LIDOCAINE 1% LOCAL 20 ML VIAL INJ ONE (16:40)
--- NOTE | 2023-09-13 16:55 | Fluoroscopy Report ---
INTRAOPERATIVE RADIOGRAPHS CLINICAL HISTORY: Open reduction and internal fixation of the right ankle. Fluoro time: 5 seconds Ka,r: 0.15 mGy FINDINGS: 2 spot fluoroscopic views of the right ankle are correlated with radiographs dated 4. A buttress plate has been placed along the lateral cortex of the distal fibula transfixing a dista l fibular fracture. Numerous cortical lag screw transfix the buttress plate, and a single screw also transfixes the distal talus. 2 cortical screws transfix a medial malleolar fracture. Near anatomic al ignment is restored. Soft tissue edema is seen throughout the ankle. A drain is in place. IMPRESSION: Intraoperative images from open reduction and internal fixation of bimalleolar fractures. Electronically signed by: Vidal Slater M.D. 09/13/2023 4:54 PM
--- NOTE | 2023-09-13 17:17 | Operative Report ---
Post Operative Report Pre & Post Diagnosis Operation Date: 09/13/23 08:50 Pre-Op Diagnosis: ANKLE PAIN Post-Op Diagnosis: ANKLE PAIN I identified the patient and participated in the time-out.: Yes Procedure Operation Date: 09/13/23 08:50 Actual Procedures p Right Ankle Aspiration, Incision and drainage right ankle joint, Incision and drainage medial and lateral incisions(Right) - Romeo Hoskins MD Surgeon Romeo Hoskins MD Life Sciences Manager Mik Mitchell PAJeremias Estimated Blood Loss 50 Findings Consistent with Post-Op Diagnosis Specimens Specimen from joint, medial and lateral hardware sites. Description of Procedure I was present during the entire procedure assisting with positioning, prepping, draping, wound retraction, irrigation, debridement, drain placement, wound closure, dressing and splint application. No fellow present. Please see Dr. Hoskins procedure note for specifics of the case. I attest to the content of the Intraoperative Record and any orders documented therein. Any exceptions are noted below.
--- NOTE | 2023-09-13 17:17 | Operative Report ---
Post Operative Report Pre & Post Diagnosis Operation Date: 09/13/23 08:50 Pre-Op Diagnosis: Postoperative infection right ankle status post ORIF of a chronic bimalleolar ankle fracture with syndesmotic disruption Post-Op Diagnosis: Same I identified the patient and participated in the time-out.: Yes Procedure Operation Date: 09/13/23 08:50 Actual Procedures p Right AnkleJoint Aspiration, Incision and drainage right ankle joint, Incision and drainage medial and lateral malleolar incisions(Right) - Romeo Hoskins MD Surgeon Romeo Hoskins MD Block Hacker SARA Murry no resident or fellow available Estimated Blood Loss 50 Findings Consistent with Post-Op Diagnosis Specimens Culture #1 right ankle joint culture #2 right ankle medial incision culture #3 right ankle lateral incision Drains Hemovac x 3. 1 in the ankle joint and 1 in each of the medial and lateral incisions. Anesthesia Type General Regional Complications none Disposition Accompanied Patient To Recovery: No Disposition: Recovery Room Indications Alex is 48. He is 2 weeks status post ORIF of a chronic fracture of the right ankle medial and lateral malleolus with syndesmotic disruption. He was seen in the office today for routine follow-up. He was noted to have erythema of the ankle mostly medial but some lateral. Mostly posterior. He had minimal discomfort but limited movement of the ankle. There was drainage from the medial incision. I recommended admission to the hospital and irrigation and debridement. He agreed to proceed. Description of Procedure Informed consent. Patient identified. He identified the procedure site as the right ankle which I marked with my initials. A preoperative surgical timeout w as performed and a preop dose of IV antibiotics was given. He was taken to the operating room positioned supine on the operating room table. A tourniquet was applied to the right thigh the leg was prescrubbed with Betadine and then prepped and draped with Betadine paint in the usual sterile fashion. The limb was exsanguinated with gravity and the tourniquet inflated to 250 mmHg. Kcentra and TXA were given preoperatively. His last dose of Eliquis was this morning. Preop dose of vancomycin was given. SCDs for DVT prophylaxis intraoperatively. Mechanical devices and Lovenox postop. There was active drainage from the distal portion of the medial incision but not laterally. I squeezed over the distal part of the lateral incision and expressed purulence. I opened the medial incision bluntly. Intact sutures were cut and all sutures removed as encountered. The saphenous neurovascular structures were identified preserved and protected. Most of the mucinous debris and snot like material was noted in the distal part of the incision. The periosteal sutures were removed in order to gain access to the ankle joint. Blunt dissection was performed and the [facility] retractor was inserted into deep to the anterior ankle capsule. A culture was obtained of the medial wound deep. This was sent for routine analysis and was labeled culture #2. Copious pulsatile lavage was performed with 4-1/2 L of saline on that medial incision. The medial screws were identified and also irrigated. The fracture was intact and stable. I inserted the guidepins into each screw. The anterior screw was tightened. The posterior screw had less than a turn to make it tight. Some chronic fraying of the posterior tib tendon was noted when it was retracted out of the way. 3 L of bulb syringe irrigation were utilized within the ankle joint itself. Prior to starting the procedure but after prepping and draping through the anteromedial approach I aspirated the ankle joint through an anteromedial approach and aspirated with 1 cc of purulent material which was labeled culture #1 and sent for routine analysis. There was not enough fluid present for cell count. Attention was turned to the lateral incision which was completely opened in a likewise fashion. I removed all of the sutures for the periosteal repair over the plate. Mucinous debris was noted essentially over the entire length of the plate but mostly distally. I opened up the capsule just anterior to the distal fibula to gain access to the ankle joint. The bone graft placed over the fracture site was removed. The plate was repetitiously scrubbed with a sterile toothbrush and irrigated with 4 and half liters of sterile saline. All screws were checked for tightness and a couple in the distal cluster small locking scr ews had a part of return to tighten them. Prior to irrigating a culture was obtained of the lateral wound deep against the plate and labeled #3 lateral. I then placed the deep lateral drain. Deep medial drain both exiting proximally. I then placed a drain within the ankle joint coming out anteromedially superficial to the saphenous. Tourniquet let down meticulous hemostasis was achieved with pressure and cautery. The deep tissue was left unrepaired. The skin was closed with interrupted 3-0 nylon sutures. Near far far near stitches and simple sutures. Local anesthetic half percent Marcaine and 1% lidocaine was injected into the skin and subcutaneous tissues only. The leg was cleaned wet dry sponges and a bulky soft sterile dressing was applied Xeroform 4 x 4's ABD soft wrap. Post erior splint with the ankle in neutral. Patient awakened from anesthesia without difficulty and taken to the recovery room in stable condition. Specimens were as mentioned above counts were correct blood loss is estimated to be 50 cc. At the conclusion the operation there was no one available to speak to. Plan is admit to the hospital. Consult ID. Nonweightbearing. Broad-spectrum antibiotics. Follow-up on cultures. I attest to the content of the Intraoperative Record and any orders documented therein. Any exceptions are noted below.
[2023-09-13] MEDS ORDERED: MAGNESIUM HYDROXIDE SUSP 30 ML UDC PO PRN (17:18)
[2023-09-13] MEDS ORDERED: diphenhydrAMINE 50 MG/ML VIAL IV PRN (17:18)
[2023-09-13] MEDS: fentaNYL citrate PF 100 MCG/2 ML VIAL IV PRN (17:40)
--- NOTE | 2023-09-13 18:41 | Anesthesiology Progress Note ---
Date of Service September 13, 2023 Anesthesia Post Procedure Vital Signs Vital Signs: Temp Pulse Pulse Resp BP BP Pulse Ox 09/13/23 18:35 84 12 132/92 94 09/13/23 18:20 85 12 145/88 H 95 09/13/23 18:10 36.5 C 86 12 137/89 96 09/13/23 18:00 80 12 160/97 H 97 09/13/23 17:50 86 12 153/97 H 100 09/13/23 17:40 87 12 151/95 H 100 09/13/23 17:30 92 H 12 147/92 H 98 09/13/23 17:20 36.1 C L 90 12 138/94 100 09/13/23 14:10 09/13/23 14:09 37.0 C 97 H 16 129/83 97 09/13/23 12:23 101 H 09/13/23 12:00 98 H 18 141/85 H 96 09/13/23 11:05 36.7 C 97 H 20 122/81 97 O2 Del Method O2 Flow Rate 09/13/23 18:35 Room Air 09/13/23 18:20 Room Air 09/13/23 18:10 Room Air 09/13/23 18:00 Room Air 09/13/23 17:50 Oxymask 4 09/13/23 17:40 Oxymask 4 09/13/23 17:30 Oxymask 4 09/13/23 17:20 Oxymask 6 09/13/23 14:10 Room Air 09/13/23 14:09 Room Air 09/13/23 12:23 09/13/23 12:00 Room Air 09/13/23 11:05 Room Air Pain Intensity Right Ankle: Pain Intensity: 4 Transfer of Care Handoff Completed per policy Notes Mental Status: alert / awake / arousable Patient Amnestic to Procedure: Yes Nausea / Vomiting: adequately controlled Pain: adequately controlled Airway Patency, RR, SpO2: stable & adequate BP & HR: stable & adequate Hydration State: stable & adequate Anesthetic Complications: no major complications apparent
[2023-09-13] MEDS: HYDROmorphone INJ 2 MG/ML SYR/VIAL IV PRN (18:56)
[2023-09-13] MEDS ORDERED: CEFEPIME 2,000 MG in SYRINGE 0 ML IV SCH (20:00)
[2023-09-13] MEDS: TRANEXAMIC ACID / 0.7% NACL 1,000 MG/100 ML BAG IV STA (21:12)
[2023-09-13] MEDS: BUPIVACAINE HCL 0.75% 10 ML AMP/VIAL INJ ONE ×3 (21:14)
[2023-09-13 21:20] LABS: Albumin Globulin Ratio 1.1 (0.9-2); Albumin Level 3.8 gm/dl (3.4-5.0); BUN Creatinine Ratio 19.4 (10-20); Bilirubin,Total 0.5 mg/dl (0.2-1.0); Calcium 8.8 mg/dl (8.6-10.3); Creatinine Clr Calc Pharmacy 151.7 ml/min; Est GFR (African American) 132.6 ml/min; Est GFR (Non-African American) 114.4 ml/min; Globulin 3.5 gm/dl (2.5-4.0); Potassium 4.2 mmol/L (3.5-5.1); Total Protein 7.3 gm/dl (6.0-8.3)
[2023-09-13] MEDS: VANCOMYCIN HCL 1,750 MG in SODIUM CHLORIDE 0.9% 500 ML IV SCH (21:25)
[2023-09-13] MEDS: VENLAFAXINE HCL XR 150 MG CAPXR PO SCH (21:28)
[2023-09-13] MEDS: ACETAMINOPHEN 500 MG TAB PO SCH (21:29)
[2023-09-13] MEDS: OLANZapine 20 MG TABLET PO SCH (21:29)
[2023-09-13] MEDS: DOCUSATE SODIUM 100 MG CAP PO SCH (21:30)
[2023-09-13] MEDS: CEFEPIME 2,000 MG in SYRINGE 0 ML IV SCH (21:31)
[2023-09-13 21:48] LABS: Hematocrit (blood only) 32.3 % (42.0-52.0); Hemoglobin 10.5 g/dl (14.0-18.0); Mean Corpuscular Hgb Conc 32.5 g/dL (32.0-36.0); Mean Corpuscular Volume 92.3 fL (80.0-100.0); Mean Platelet Volume 9.9 fL (9.4-12.4); Platelet Count 294 K/uL (130-400); RDW Coefficient of Variation 12.3 % (11.5-14.5); RDW Standard Deviation 41.2 fL (36.4-46.3); White Blood Count 13.97 K/ul (4.8-10.8)
[2023-09-13 22:25] LABS: Basophils # (auto) 0.03 K/uL (0.00-0.20); Basophils % (auto) 0.2 %; Immature Granulocytes # (auto) 0.11 K/uL (0.01-0.20); Immature Granulocytes % (auto) 0.8 %; Lymphocytes # (auto) 0.51 K/uL (1.20-3.40); Lymphocytes % (auto) 3.7 %; Monocytes # (auto) 0.34 K/uL (0.11-0.59); Monocytes % (auto) 2.4 %; Neutrophils # (auto) 12.98 K/uL (1.40-6.50); Neutrophils % (auto) 92.9 %
[2023-09-13] MEDS: oxyCODONE/ACETAMINOPHEN 5mg/325mg TAB PO PRN (22:42)
--- NOTE | 2023-09-14 08:39 | Infectious Disease Consult ---
Date of Consultation September 14, 2023 Assessment & Plan (1) Septic joint: (2) Ankle fracture: (3) HCV (hepatitis C virus): (4) Opioid use disorder: Plan 48yo incarcerated male with h/o right ankle fracture s/p ORIF on 08/31/23, opioid dependence, HCV s/p treatment in 2020, who presented on 09/12 with right ankle pain, incision drainage, and subjective fevers after walking on his foot post- surgery. He was seen by outpatient ortho on 09/12, found with erythema over foot and medial ankle, cultures were obtained of the right medial wound and sent to ED. S/p right ankle aspiration, I+D of ankle joint and incisions on 09/12 (per op note, purulence was expressed from lateral incision, ankle joint aspiration yielded 1cc of purulent material not enough for cell count). Here he has been afebrile, vss. WBC 11.81, Cr 0.77, LFT wnl, ESR 80, CRP 18.58. Vancomycin and Cefepime started it seems postop. ID consulted 09/13. Awaiting culture results. Given purulence noted from ankle joint in the OR, would treat for septic joint, which will be 6 weeks of IV antibiotics, followed by PO suppression given hardware. # Right ankle septic joint s/p I+D 09/12 # Recent right ankle ORIF on 08/30 # H/o HCV s/p treatment # Incarcerated - continue on vancomycin pharmacy dosed protocol and cefepime 2g IV q8h - f/u all cultures - he will need retirement antibiotics for septic joint with hardware ID will continue to follow. If questions or concerns, contact Infectious Disease Call Center . Neli Barrett MD [facility], Division of Infectious Diseases IDConnect: [phone] Consultation Information Consultation was provided via telemedicine using two-way real-time interactive telecommunication between the patient and the telemedicine provider. For the duration of the visit, the provider was performing the assessment from a diff erent facility than the patient. This includesuse of bluetooth stethoscope forauscultationperformed by the telepresenter that the telemedicine provider can hear if described in the physical exam. Hospital Director contact information: Please call ID Connect Call Center . (Phone Number For Physician Use Only) After establishing a telemedicine visit, patient was: Patient was verified with two unique identifiers, Patient/authorized rep acknowledged consent and understanding and Gave permission to continue telehealth session Time Spent with Patient: Initial => 75 min History of Present Illness Reason for Consultation: right ankle septic joint Attending Physician: Romeo Hoskins MD History of Present Illness 48yo incarcerated male with h/o right ankle fracture s/p ORIF on 08/31/23, opioid dependence, HCV s/p treatment in 2020, who presented on 09/12 with right ankle pain, incision drainage, and subjective fevers. He had been placed in the [facility] x 1 night after his recent discharge on 09/01 following surgery. He was then placed back in the general population and had to walk on his foot following surgery since wheelchair did not fit into his cell. He was placed back in the [facility] 4 days ago due to concerns. He was seen by outpatient ortho on 09/12 and cultures were obtained of the right medial wound and planned for admission. S/p right ankle aspiration, I+D of ankle joint and incisions on 09/12 (per op note, purulence was expressed from lateral incision, ankle joint aspiration yielded 1cc of purulent material not enough for cell count). Here he has been afebrile, vss. WBC 11.81, Cr 0.77, LFT wnl, ESR 80, CRP 18.58. Vancomycin and Cefepime started it seems postop. ID consulted 09/13. On evaluation, he reports that he had pain in his ankle when he first came in. Did not have any redness going up the leg but ankle was red with drainage. No chills. He has not had any chest pain, SOB, abdominal pain, vomiting, diarrhea. Allergies Allergy/AdvReac Type Severity Reaction Status Date / Time No Known Allergies Allergy Unverified 08/26/23 11:47 Home Medications Medication Instructions Recorded Confirmed Type Effexor XR 300 mg PO PM 08/26/23 08/26/23 History Zyprexa 1 tab PO QPM 08/26/23 08/26/23 History buprenorphine 0.5 ml SC Q4WK 08/26/23 08/26/23 History acetaminophen 500 mg tablet 1,000 mg (2 x 500 mg) PO Q8H 30 09/02/23 Rx (Tylenol Extra Strength) days #180 tabs apixaban 2.5 mg tablet (Eliquis) 2.5 mg PO BID 14 days #28 tabs 09/02/23 Rx ascorbic acid (vitamin C) 500 mg 500 mg PO BIDM 14 days #28 tabs 09/02/23 Rx tablet (Vitamin C) cholecalciferol (vitamin D3) 125 125 mcg PO QAM 42 days #42 tabs 09/02/23 Rx mcg (5,000 unit) tablet docusate sodium 100 mg capsule 100 mg PO BID 14 days #28 caps 09/02/23 Rx ferrous gluconate 324 mg (38 mg 324 mg PO BIDM 14 days #28 tabs 09/02/23 Rx iron) tablet hydrocodone 5 mg-acetaminophen 325 1 tab PO Q4H PRN pain #15 tabs 09/02/23 Rx mg tablet Patient History Medical History (Updated 09/14/23 @ 08:38 by Neli Barrett MD) Encounter for pre-operative examination HCV (hepatitis C virus) Opioid use disorder Cannabis use disorder Cocaine use disorder Nicotine dependence Constipation Adjustment disorder with anxiety PTSD (post-traumatic stress disorder) Social History Smoking Status: Current every day smoker Tobacco Type: E-cigarettes / Vaping Second Hand Exposure: Yes; Do You Dip or Chew Tobacco: No; Tobacco Cessation Education Requested by Patient: No Hx Alcohol Use: No Hx Substance Use: Yes Last Used Substance: Unknown Preferred Language: [place] Communication Ability: Effective Table Keeper Required: No Beliefs That Will Affect Care: None Current Living Situation: Other Current Living Situation Comment: [facility] Other Information That Helps Us Care for You: No Feels Safe at Home: Yes Safety Concerns: Feels Safe At This Time Assistive Devices: Walker and Wheelchair Review of System 10-point review of systems reviewed and are negative except for as above. Physical Exam Physical Exam: General: Awake, alert, no acute distress HEENT: NC/AT, EOMI, mmm Neck: supple Lungs: respirations non-labored Heart: nl peripheral perfusion Abdomen: soft, NT/ND Ext: right leg with postop dressing and drainage catheters in place, no redeness/swelling of left leg Neuro: moving all extremities Results & Data Vital Signs (Past 12 Hours) Vital Signs Temp Pulse Resp BP Pulse Ox O2 Del Method 09/14/23 08:17 36.6 C 85 16 118/78 96 Room Air Laboratory Results Labs reviewed. Diagnostic Findings Imaging reviewed. (2) Ankle fracture Encounter type: initial encounter Fracture type: closed Laterality: right Qualified Code(s): S82.891A - Other fracture of right lower leg, initial encounter for closed fracture
[2023-09-14] MEDS: FERROUS GLUCONATE 324 MG TAB PO SCH (08:43)
[2023-09-14] MEDS: ASCORBIC ACID 500 MG TAB PO SCH (08:43)
[2023-09-14] MEDS: CHOLECALCIFEROL 125 MCG (5,000 UNITS) TAB PO SCH (08:43)
[2023-09-14] MEDS: ENOXAPARIN INJ 30 MG/0.3 ML SYR SQ SCH (08:44)
--- NOTE | 2023-09-14 09:33 | Pharmacy Report ---
Pharmacy PK ABX Note - Date of Service September 14, 2023 - Assessment and Plan Assessment 48 year old M receiving cefepime/vancomycin for treatment of presumed septic arthritis of the right ankle. Pertinent microbiologic data includes: ankle and blood cultures pending. Day # 2 of antimicrobial therapy. Plan Vancomycin * Loading dose: 2000 mg IV x 1 * Maintenance dose: 1750 mg IV every 12 hours * Regimen is predicted to achieve target AUC/OBEY of 400-600 mg/L.hr * Random level ordered for: 09/15/23 with AM labs Pharmacy will continue to follow and will adjust dose/frequency as necessary. Thank you. Pharmacy has transitioned to AUC monitoring for vancomycin. AUC/OBEY is the preferred PK/PD target and is associated with decreased risk of nephrotoxicity compared to traditional trough targets.
--- NOTE | 2023-09-14 09:47 | Orthopedic Progress Note ---
Date of Service September 14, 2023 Assessment & Plan (1) Postoperative wound infection: Plan: No fever. WBC elevated at 14,000. Hemoglobin and hematocrit within acceptable limits. Ankle joint culture aspiration has not grown anything yet. The medial and lateral incisions both are growing gram-positive cocci. ID consult pending. Continue IV antibiotics vancomycin and cefepime. Nonweightbearing. Leave drains in and order placed to record output. Plan on discontinuing drains likely tomorrow and changing dressings. Will likely need long-term IV antibiotics. We discussed possibilities which include successful bone healing and eradication of infection or complications related to persistent infection the need for hardware removal or revision and fracture nonunion. Lovenox for DVT prophylaxis. I will be out of town starting Tuesday. Patient aware. Admission and Anticipated Discharge Date Admission Date: September 13, 2023 Subjective Had some pain yesterday. Better today. Results of surgery were discussed. Physical Exam Physical Exam: He can wiggle his toes. The foot is warm with capillary refill less than 2 seconds. Big toe extension intact. DP pulse is 1+. There is mild swelling of the forefoot. Splint and drains are intact. Results & Data Vital Signs (Past 12 Hours) Vital Signs Temp Pulse Resp BP Pulse Ox O2 Del Method 09/14/23 08:17 36.6 C 85 16 118/78 96 Room Air Laboratory Results Laboratory Results WBC 13.97 K/ul (4.8-10.8) H 09/13/23 20:41 RBC 3.50 M/uL (4.70-6.10) L 09/13/23 20:41 Hgb 10.5 g/dl (14.0-18.0) L 09/13/23 20:41 Hct 32.3 % (42.0-52.0) L 09/13/23 20:41 MCV 92.3 fL (80.0-100.0) 09/13/23 20:41 MCH 30.0 pg (25.0-34.0) 09/13/23 20:41 MCHC 32.5 g/dL (32.0-36.0) 09/13/23 20:41 RDW Std Deviation 41.2 fL (36.4-46.3) 09/13/23 20:41 RDW Coeff of Sarthak 12.3 % (11.5-14.5) 09/13/23 20:41 Plt Count 294 K/uL (130-400) 09/13/23 20:41 MPV 9.9 fL (9.4-12.4) 09/13/23 20:41 Immature Gran % (Auto) 0.8 % 09/13/23 20:41 Neut % (Auto) 92.9 % 09/13/23 20:41 Lymph % (Auto) 3.7 % 09/13/23 20:41 [place] % (Auto) 2.4 % 09/13/23 20:41 Eos % (Auto) 0.0 % 09/13/23 20:41 Baso % (Auto) 0.2 % 09/13/23 20:41 Neut # (Auto) 12.98 K/uL (1.40-6.50) H 09/13/23 20:41 Lymph # (Auto) 0.51 K/uL (1.20-3.40) L 09/13/23 20:41 [place] # (Auto) 0.34 K/uL (0.11-0.59) 09/13/23 20:41 Eos # (Auto) 0.00 K/uL (0.00-0.50) 09/13/23 20:41 Baso # (Auto) 0.03 K/uL (0.00-0.20) 09/13/23 20:41 Immature Gran # (Auto) 0.11 K/uL (0.01-0.20) 09/13/23 20:41 ESR 80 mm/hr (0-15) H 09/13/23 11:30 Sodium 136 mmol/L (136-145) 09/13/23 20:41 Potassium 4.2 mmol/L (3.5-5.1) 09/13/23 20:41 Chloride 100 mmol/L (98-107) 09/13/23 20:41 Carbon Dioxide 28 mmol/L (21-32) 09/13/23 20:41 Anion Gap 8 (3-11) 09/13/23 20:41 BUN 13 mg/dl (6-23) 09/13/23 20:41 Creatinine 0.67 mg/dl (0.6-1.4) 09/13/23 20:41 Est Cr Clr Drug Dosing 151.7 ml/min 09/13/23 20:41 Est GFR ( Amer) 132.6 ml/min 09/13/23 20:41 Est GFR (Non-Af Amer) 114.4 ml/min 09/13/23 20:41 BUN/Creatinine Ratio 19.4 (10-20) 09/13/23 20:41 Glucose 157 mg/dl (70-99(Fasting)) H 09/13/23 20:41 Calcium 8.8 mg/dl (8.6-10.3) 09/13/23 20:41 Total Bilirubin 0.5 mg/dl (0.2-1.0) 09/13/23 20:41 AST 13 U/L (13-39) 09/13/23 20:41 ALT 24 U/L (7-52) 09/13/23 20:41 Alkaline Phosphatase 101 U/L (34-104) 09/13/23 20:41 C-Reactive Protein 18.58 mg/dl (0-0.5) H 09/13/23 11:30 Total Protein 7.3 gm/dl (6.0-8.3) 09/13/23 20:41 Albumin 3.8 gm/dl (3.4-5.0) 09/13/23 20:41 Globulin 3.5 gm/dl (2.5-4.0) 09/13/23 20:41 Albumin/Globulin Ratio 1.1 (0.9-2) 09/13/23 20:41 Vancomycin Trough 12.1 mcg/ml (10-20) 09/13/23 20:41 SARS-CoV-2, RNA, NAAT NEGATIVE (NEGATIVE) 09/13/23 13:44 Impressions Ankle X-Ray 09/13/23 14:00 INTRAOPERATIVE RADIOGRAPHS CLINICAL HISTORY: Open reduction and internal fixation of the right ankle. Fluoro time: 5 seconds Ka,r: 0.15 mGy FINDINGS: 2 spot fluoroscopic views of the right ankle are correlated with radiographs dated 08/26/2023. A buttress plate has been placed along the lateral cortex of the distal fibula transfixing a distal fibular fracture. Numerous cortical lag screw transfix the buttress plate, and a single screw also transfixes the distal talus. 2 cortical screws transfix a medial malleolar fract ure. Near anatomic alignment is restored. Soft tissue edema is seen throughout the ankle. A drain is in place. IMPRESSION: Intraoperative images from open reduction and internal fixation of bimalleolar fractures. Electronically signed by: Vidal Slater M.D. 09/13/2023 4:54 PM
[2023-09-15] MEDS ORDERED: ceFAZolin 330 MG/ML 1 GM VIAL IV SCH
[2023-09-15] MEDS ORDERED: rifAMPin 300 MG CAPSULE PO SCH
[2023-09-15 06:17] LABS: Hematocrit (blood only) 27.1 % (42.0-52.0); Hemoglobin 8.7 g/dl (14.0-18.0); Mean Corpuscular Hemoglobin 30.1 pg (25.0-34.0); Mean Corpuscular Hgb Conc 32.1 g/dL (32.0-36.0); Mean Corpuscular Volume 93.8 fL (80.0-100.0); Mean Platelet Volume 9.6 fL (9.4-12.4); Platelet Count 263 K/uL (130-400); RDW Standard Deviation 41.7 fL (36.4-46.3); Red Blood Count 2.89 M/uL (4.70-6.10); White Blood Count 5.65 K/ul (4.8-10.8)
--- NOTE | 2023-09-15 08:25 | Infectious Disease Progress Nt ---
Date of Service September 15, 2023 Assessment & Plan (1) Septic joint: (2) Ankle fracture: (3) HCV (hepatitis C virus): (4) Opioid use disorder: Plan 48yo incarcerated male with h/o right ankle fracture s/p ORIF on 08/31/23, opioid dependence, HCV s/p treatment in 2020, who presented on 09/12 with right ankle pain, incision drainage, and subjective fevers after walking on his foot post- surgery. He was seen by outpatient ortho on 09/12, found with erythema over foot and medial ankle, cultures were obtained of the right medial wound and sent to ED. S/p right ankle aspiration, I+D of ankle joint and incisions on 09/12 (per op note, purulence was expressed from lateral incision, ankle joint aspiration yielded 1cc of purulent material not enough for cell count). Here he has been afebrile, vss. WBC 11.81, Cr 0.77, LFT wnl, ESR 80, CRP 18.58. Vancomycin and Cefepime started it seems postop. ID consulted 09/13. OR cx with Staph species. Bernadette stopped cefepime and will continue vancomycin while waiting for susceptibilities. BCx are so far no growth. Plan will be 6 weeks of IV a ntibiotics, followed by PO suppression given hardware. Final regimen pending culture results. 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 If questions or concerns, contact Infectious Disease Call Center . Neli Barrett MD [facility], Division of Infectious Diseases IDConnect: [phone] Admission and Anticipated Discharge Date Admission Date: September 14, 2023 Subjective This patient recommendation is based on a telemedicine consult request which was completed asynchronously through chart review and information provided by the primary physician. The patient was not seen or examined today. The evaluation is consultative in nature and all patient care and treatment decisions can either be accepted or rejected by the patient's primary hospital-based treating physician using their own independent medical judgment for their patient. Time Spent Reviewing Chart: 31+ minutes Results & Data Vital Signs (Past 12 Hours) Vital Signs Temp Pulse Resp BP Pulse Ox O2 Del Method 09/15/23 07:47 36.5 C 77 18 121/78 96 Room Air 09/14/23 21:07 36.6 C 80 18 119/75 96 Room Air (2) Ankle fracture Encounter type: initial encounter Fracture type: closed Laterality: right Qualified Code(s): S82.891A - Other fracture of right lower leg, initial encounter for closed fracture
[2023-09-15] MEDS: ceFAZolin 2000MG 2,000 MG/15 ML SYR IV SCH (10:22)
--- NOTE | 2023-09-15 12:10 | Orthopedic Progress Note ---
Date of Service September 15, 2023 Assessment & Plan (1) Postoperative wound infection: Plan: Postop day 2-status post I&D right ankle postoperative wound infection with Dr. Hoskins in September 13, 2023. Status post ORIF right ankle 08/31/2023 -Maintain nonweightbearing right lower extremity at all times. -Keep splint and dressing is on at all times. Keep it clean and dry. -Ice to right ankle as needed for pain and swelling. -Elevate right lower extremity above his heart to relieve pain and swelling. -Recommend keeping heels off of the bed. -May wiggle toes and do range of motion of right knee as tolerated. -PT and OT as ordered. -Continue Lovenox while in house but will discharge to Eliquis 2.5 mg p.o. twice daily for DVT prophylaxis as an outpatient. -Initiate infectious disease recommendations. Antibiotics have been changed to cefazolin 2 g IV every 8 hours. This has been ordered. Will add rifampin 300 mg p.o. twice daily if blood cultures finalized negative. -PICC consent obtained today by myself and Dr. Hoskins. PICC order placed. Will need to receive 1 dose of IV antibiotics through PICC line before discharge. -Plan discussed with case management. She will contact [facility] to see when they can accept patient back and they can get the appropriate medication at their facility. -Continue regular diet. -Continue home medications. - Prescriptions for lab work and antibiotics have been placed on patient chart. -Findings have been discussed with patient. All questions were answered. Dr. Hoskins present for today's visit. -Will continue to follow while in house. -Plan for discharge today or tomorrow once arrangements for IV antibiotics have been made. -Follow-up as scheduled. Admission and Anticipated Discharge Date Admission Date: September 14, 2023 Subjective Denies pain when resting in bed. Has been keeping his leg elevated. Has kept the splint in place. States his pain is improved today.Denies any numbness or tingling. Physical Exam Musculoskeletal: Exam of right lower extremity: Postoperative dressings were removed. His incisions are clean, dry and intact. Less erythema. No active drainage. No underlying seroma or fluctuance. Mildly tender with palpation. Sutures are retained. Hemovac drains are in place and removed today. Mild bloody drainage from Hemovac sites. The foot is not edematous. Distal pulses are 1+. Sensation is normal. He is able to wiggle his toes. Full range of motion of the right knee. He is able to independently straight leg raise the right leg. Calf is supple and nontender. His incisions were cleansed with a sterile saline and new dressings were applied with Xeroform, 4 x 4's, ABD Curlex, splint and Eliot bandages. Results & Data Vital Signs (Past 12 Hours) Vital Signs Temp Pulse Resp BP Pulse Ox O2 Del Method 09/15/23 07:47 36.5 C 77 18 121/78 96 Room Air Laboratory Results 09/15/23 Range/Units 05:34 WBC 5.65 (4.8-10.8) K/ul RBC 2.89 L (4.70-6.10) M/uL Hgb 8.7 L (14.0-18.0) g/dl Hct 27.1 L (42.0-52.0) % MCV 93.8 (80.0-100.0) fL MCH 30.1 (25.0-34.0) pg MCHC 32.1 (32.0-36.0) g/dL RDW Std Deviation 41.7 (36.4-46.3) fL RDW Coeff of Sarthak 12.0 (11.5-14.5) % Plt Count 263 (130-400) K/uL MPV 9.6 (9.4-12.4) fL Random Vancomycin 15.2 (10-20) mcg/ml Microbiology 09/13/23 11:20 Aerobic Blood Culture - Preliminary Blood No growth in Aerobic bottle after 48 hours. Anaerobic Blood Culture - Preliminary No growth in Anaerobic bottle after 48 hours. 09/13/23 11:30 Aerobic Blood Culture - Preliminary Blood No growth in Aerobic bottle after 48 hours. Anaerobic Blood Culture - Preliminary No growth in Anaerobic bottle after 48 hours. 09/13/23 15:45 Gram Stain - Final Ankle Aerobic and Anaerobic Culture - Preliminary Staphylococcus aureus 09/13/23 15:19 Gram Stain - Final Ankle Aerobic and Anaerobic Culture - Preliminary Staphylococcus aureus 09/13/23 15:14 Gram Stain - Final Ankle Aerobic and Anaerobic Culture - Preliminary Staphylococcus aureus
--- NOTE | 2023-09-15 16:31 | Discharge Summary ---
Date of Service September 15, 2023 Admission HPI Per Admitting Provider Alex Read is a 48 year old Male who presents today for follow-up s/p the above noted procedure. Patient reports after surgery he was [facility] in [facility] night before he was put back in general population. He had to walk for 4 days following surgery because the wheelchair does not fit into his cell. He was then placed back in the [facility]. He is getting Eliquis, Vitamin D, and ibuprofen. He did have his Eliquis already today. He reports a 6/10 pain in his ankle and localizes the majority of his pain over the medial aspect. There is drainage from the medial incision. He describes a possible fever during which he became extremely warm and then diaphoretic. Denies any new injury. Office cultures were obtained of the right medial wound. The wound does appear to and be infected. Will plan on doing a direct admission from the office. Called admissions at the hospital and they do not have a bed available. He was advised to go directly to the emergency room. Upon arrival to the emergency room we will obtain laboratory work and start his IV antibiotics. He will need to be n.p.o. and plans for I&D of the left ankle offer later this afternoon. Informed consent has been obtained and on his chart. Discharge Data Consultations 09/13/23 17:18 Consult Infectious Diseases Stat Procedures Performed Operation Date: 09/13/23 08:50 Actual Procedures p Right Ankle Aspiration, Incision and drainage right ankle joint, Incision and drainage medial and lateral incisions(Right) - Romeo Hoskins MD Hospital Course (1) Postoperative wound infection: Patient was admitted to [facility] after undergoing an incision and drainage of his right ankle for postoperative wound infection with Dr. Hoskins on September 13, 2023. He had an open reduction internal fixation of his right ankle on August 31, 2023. He presented to the office for postoperative wound check was found to have an infection. He was directly admitted to [facility]. He was kept n.p.o. and underwent an incision and drainage on September 13, 2023. He was admitted to the hospital postoperatively. He was advised to be nonweightbearing. His Eliquis was held and he was given Kcentra prior to his procedure. His procedure was performed with general anesthesia. He tolerated the procedure well without any intraoperative complications. Intraoperative cultures were obtained. Preoperative blood cultures were obtained as well and remained negative during his inpatient stay. He was started on IV vancomycin and cefepime. Postoperatively an ID consult was placed. He was allowed out of bed with the assistance of a walker or crutches. He was encouraged to ice and elevate. Hemovac drains were placed in the operating room. On postoperative day 2 his dressings were changed. The drains were pulled. New dressing and splint was applied. Physical therapy and Occupational Therapy consults were placed. He is encouraged to work on range of motion of his toes and knee as tolerated. His Eliquis was held during his inpatient stay and he was placed on Lovenox 30 mg SQ twice daily for DVT prophylaxis. ID recommendations were made on postoperative day 2. They recommended IV Ancef 2 g every 8 hours as well as rifampin 300 mg p.o. twice daily. Blood cultures remain negative. His intraoperative cultures grew methicillin sensitive Staph aureus. So medications were continued. A PICC line consent was obtained on postoperative day 2 and a PICC line was placed for the IV antibiotics. He tolerated regular diet during his inpatient stay. Discharge instructions were reviewed. The [facility] facility was called and instructions were provided to them as well. On postoperative day 2 on September 15, 2023 he was discharged to [facility] in stable condition. Discharge instructions were provided and reviewed with them verbally and on paper. He had the appropriate antibiotics ordered and ready to go for the patient when he arrived. We will get weekly CBC and CMP's while on IV antibiotics. All questions were answered. They know to call with any further problems, questions or concerns.
== END 2023-09-15 16:50 | DRG 863 ==
LOC: ED 10:53 → 3W 13:56 → OR 13:56 → ED 14:10
DX: T81.42XA Infection following a procedure, deep incisional surgical site, initial encounter; E55.9 Vitamin D deficiency, unspecified; B19.20 Unspecified viral hepatitis C without hepatic coma; F17.290 Nicotine dependence, other tobacco product, uncomplicated; Z79.01 Long term (current) use of anticoagulants; M00.071 Staphylococcal arthritis, right ankle and foot; Z11.52 Encounter for screening for COVID-19; S82.51XG Displaced fracture of medial malleolus of right tibia, subsequent encounter for closed fracture with delayed healing; B95.61 Methicillin susceptible Staphylococcus aureus infection as the cause of diseases classified elsewhere; Z79.899 Other long term (current) drug therapy; F11.90 Opioid use, unspecified, uncomplicated; X58.XXXD Exposure to other specified factors, subsequent encounter